=== PATIENT | male | born 1980 | race Caucasian/White ===

== ENCOUNTER → 2022-11-13 | Outpatient (CLI) | payer OTHER, SELFPAY ==
[2022-11-13 16:53] LABS: Absolute Neutrophil Count 4.9 X10^3/uL (2.0-7.7); Basophil# 0.03 X10^3/uL; Basophil% 0.3 % (0-1); Eosinophil# 0.05 X10^3/uL; Eosinophils% 0.5 % (0-5); Hemoglobin 15.7 g/dL (13.0-16.5); Lymphocyte % 39.6 % (19-41); Mean Corp Hgb Conc 33.4 g/dL (32-36); Mean Corpuscular Hgb 29.7 pg (27.0-32.0); Mean Platelet Vol. 10.4 fl (6.2-12.0); Monocyte% 6.4 % (0-10); NRBC Flagged by Analyzer 0 % (0-5); Neutrophil # 4.94 X10^3/uL (2.7-7.7); Platelet Count 279 K/mm3 (150-450); RBC Distribution Width CV 11.8 % (11.6-14.6); RBC Distribution Width SD 38.3 fl (35.1-43.9); Red Blood Count 5.28 M/mm3 (4.6-6.2); White Blood Count 9.3 K/mm3 (4.4-11.0)
[2022-11-13 17:19] LABS: ALB/GLOB Ratio 0.9 RATIO (0.9-2.4); AST(SGOT) 57 U/L (15-37); Alanine Aminotransfer ALT/SGPT 107 U/L (16-61); Alkaline Phosphatase 96 U/L (45-117); Anion Gap 8 (5-15); BUN 15 mg/dL (7-18); BUN/Creat Ratio 14.7 RATIO (10-20); Calcium,Total 9.7 mg/dL (8.5-10.1); Chloride 100 mmol/L (98-107); Cholesterol 229 mg/dL (200); Creatinine, Serum 1.02 mg/dL (0.70-1.30); EST Glomerular Filtration Rate 84 mL/min (>60); Est Glom Filt Rate - Afr Amer 102 mL/min (>60); Globulin 4.3 g/dL (2.2-4.2); Glucose 146 mg/dL (74-106); High Density Lipoprotein 33 mg/dL; Potassium 3.6 mmol/L (3.5-5.1); Protein, Total 8.3 g/dL (6.4-8.2); Sodium Level 135 mmol/L (136-145); Thyroid Stim Hormone (TSH) 1.28 uIU/mL (0.358-3.74); Triglycerides 193 mg/dL; Very Low Density Lipoprotein 39 mg/dL (5-40)
[2022-11-16 15:09] LABS: Hemoglobin A1c 10.1 % (3.8-5.6)
== END | disposition home or self-care (01) ==
LOC: BIMLAB 14:49
PROVIDERS: PCP Internal Medicine; Referring Provider Internal Medicine; Visit Provider Internal Medicine
DX: K21.9 Gastro-esophageal reflux disease without esophagitis (principal); G43.909 Migraine, unspecified, not intractable, without status migrainosus; R73.09 Other abnormal glucose; Z13.6 Encounter for screening for cardiovascular disorders
CPT/HCPCS: 36415; 80053; 80061; 83036; 84443; 85025

== ENCOUNTER 2022-12-18 06:24 | Day surgery (SDC) | payer OTHER, SELFPAY ==
[2022-12-18 06:55] VITALS: BP 140/94; PULSE 67; RESP 16; TEMP 36.1; O2SAT 94; BMI 30.2
[2022-12-18] MEDS: Lactated Ringers 1,000 ML 15 ML IV (06:55)
--- NOTE | 2022-12-18 07:50 | PCM.HP.BLA ---
History and Physical Date of Admission: 12/18/22 Intake Vital Signs ? 11/13/2313:15 Height 6 ft Weight: 223 lb BMI 30.2 BP 146/89 H Blood Pressure Location Rt brachial Position Sitting Respiration 16 Pulse 91 Pulse Source Monitor Temp 97.3 F L Temp Source Temporal Pulse Oximetry (%) 97 Oxygen Delivery Method room air Intake Visit Reasons:?Upper/Lower Scope Chief Complaint: Upper/Lower Scope Seamstress Fitter Required: No Is patient in pain?: No Allergies No Known Allergies Allergy (Unverified 11/13/22 14:16) Medications rizatriptan 10 mg disintegrating tablet (Maxalt-SALES SERVICE REPRESENTATIVE) See Rx Instructions PO .COMPLEX #10 tabs 10/31/22 [Rx Confirmed 11/13/22] omeprazole 40 mg capsule,delayed release 40 mg PO DAILY 11/13/22 [History Confirmed 11/13/22] PFSH Medical History? GERD (gastroesophageal reflux disease) Headache, migraine History of pneumonia History of shingles Surgical History? No pertinent past surgical history Family History? Mother Arthritis CVA (cerebral vascular accident) High cholesterol UlcerFather Arthritis Cancer ?? ? skin Diabetes High cholesterol Hypertension Melanoma SeizuresGrandmother Arthritis Cancer ?? ? cervicalGrandfather ArthritisSister Breast cancerGrandmother Alzheimer disease UlcerGrandfather Heart failure Myocardial infarctionOther Mental disorder Social History? household members:? spouse current occupational status:? 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 Never smoker Electronic Cigarette Use:? not used alcohol intake:? never substance use type:? does not use what type of physical activity do you participate in:? none do you feel safe at home:? Yes HPI HPI HPI: Patient is a 42-year-old male here with black stools.? He reports that in 2019 he had an episode where he was vomiting a lot of acidic material that was green and since then he has had episodic black stools.? He was started on a PPI about 2 weeks ago and has not had any black stools since then.? He denies abdominal pain or gross blood in the stool.? He has not had a colonoscopy. ROS General General: Yes weight change; No appetite, fatigue, colon cancer, breast cancer or weakness HEENT HEENT: No difficulty swallowing, eye injury, eye surgery, swollen glands or hoarseness Endo Endocrine: No thyroid disease, diabetes mellitus, thyroid cancer, Hair loss, heat intolerance or cold intolerance Skin Skin: No rash or changing moles Musc Musculoskeletal: No back problems, arthritis, rheumatoid arthritis, gout or joint pain Cardio Cardiovascular: No murmur, pacemaker, heart disease, atrial fibrillation, high blood pressure, heart attack, heart stent, palpitations, shortness of breat with exertion or chest pain Psych Psychiatric: No depression, anxiety or hearing voices Resp Respiratory: No shortness of breath, No sleep apnea, No cough, No COPD, No asthma, No emphysema and No wheezing Gastro Gastrointestinal: No abdominal pain, No nausea or vomiting, No diarrhea, No constipation, Yes blood in stool, Yes acid reflux, No hemorrhoids, No ulcers, No gallbladder problem and Yes black,tarry stools Jaxon Hematologic: No blood thinners, No blood disorders, No bleeding, No anemia and No blood clots Neuro Neurologic: No system reviewed and no additional complaints, except as documented, No as per HPI, No abnormal gait, No abnormal hearing, No abnormal movements, No abnormal speech, No behavioral changes, No burning sensations, No confusion, No convulsions, No disequilibrium, No dizziness, No localized weakness, No frequent falls, No headache(s), No lack of coordination, No loss of vision, No memory loss, No numbness, No other visual disturbances, No radicular pain, No restless legs, No sensory deficit, No syncope, No tingling, No tremor(s), No weakness and No other Exam Const General: cooperative Orientation: alert and oriented x3 HENMT Head: normal to inspection Neck Neck: normal visual inspection and full ROM Chest Chest palpation & inspection: normal inspection of the chest Resp Effort & Inspection: normal respiratory effort Auscultation: clear to auscultation bilaterally Cardio Rate: regular rate Rhythm: regular rhythm GI Inspection: non-distended Palpation: soft and nontender Skin General: no rashes or lesions noted Neuro General: patient alert and patient oriented x3 Extrem General: full ROM Psych Appearance: grossly normal Mental Status: mental status grossly normal Assessment and Plan Assessment and Plan (1) Black stools: ?Status:?Acute (2) GERD (gastroesophageal reflux disease): ?Status:?Acute ?Qualifiers: ?Esophagitis presence:?without esophagitis? Qualified Code(s):?K21.9 - Gastro-esophageal reflux disease without esophagitis ? ? ? Orders: Orders Colonoscopy Today K21.9 - Gastro-esophageal reflux disease without esophagitis, K92.1 - Melena Dr. Jt Nielson MD EGD Today K21.9 - Gastro-esophageal reflux disease without esophagitis, K92.1 - Melena Dr. Jt Nielson MD ? ? ? Medications: Changed From omeprazole 20 mg? PO DAILY ? ? To omeprazole 40 mg? PO DAILY ? Dr. Aye Christianson MD Plan Patient has been having black stools and is concerned for GI bleeding.? He was sent here for EGD and colonoscopy.? Patient has never had a colonoscopy before. I explained endoscopy in detail to the patient.? I explained the risks including but not limited to stroke or heart attack with anesthesia, perforation of the GI tract, bleeding, infection.? I explained that any of these could necessitate further emergency surgery.? The patient understands and all questions were answered sufficiently.? The patient wishes to proceed with procedure. Jt Nielson MD Pager: [facility] [address] [place] [address], [address] [place] [address] Office: I have examined the patient and the H&P has been reviewed. There are no clinical changes since date of exam.
[2022-12-18 07:55] VITALS: BP 102/63; BP 140/94; BP 96/58; PULSE 61; PULSE 68; RESP 18; TEMP 36; O2SAT 93
--- NOTE | 2022-12-18 07:55 | OP.EGD_ITS ---
Patient Name: Wilfrid Quevedo Procedure Date: 12/18/2022 7:18 AM Date of : 1980 Age: 42 Procedure: Upper GI endoscopy Indications: Melena Providers: Jt Nielson MD Medicines: Monitored Anesthesia Care Patient Profile: This is a 42 year old male. Refer to note in patient chart for documentation of history and physical. Complications: No immediate complications. Procedure: Pre-Anesthesia Assessment: - Prior to the procedure, a History and Physical was performed, and patient medications and allergies were reviewed. The patient's tolerance of previous anesthesia was also reviewed. The risks and benefits of the procedure and the sedation options and risks were discussed with the patient. All questions were answered, and informed consent was obtained. Prior Anticoagulants: The patient has taken no previous anticoagulant or antiplatelet agents. After reviewing the risks and benefits, the patient was deemed in satisfactory condition to undergo the procedure. After obtaining informed consent, the endoscope was passed under direct vision. Throughout the procedure, the patient's blood pressure, pulse, and oxygen saturations were monitored continuously. The colonoscope was introduced through the mouth, and advanced to the second part of duodenum. The upper GI endoscopy was accomplished without difficulty. The patient tolerated the procedure well. Scope In: 7:34:17 AM Scope Out: 7:36:31 AM Total Procedure Duration Time 0 hours 2 minutes 14 seconds Findings: The esophagus was normal. The stomach was normal. The examined duodenum was normal. Impression: - Normal esophagus. - Normal stomach. - Normal examined duodenum. - No specimens collected. Recommendation: - Discharge patient to home. - Resume previous diet. - Continue present medications. Procedure Code(s): --- Professional --- 68289, Esophagogastroduodenoscopy, flexible, transoral; diagnostic, including collection of specimen(s) by brushing or washing, when performed (separate procedure) Diagnosis Code(s): --- Professional --- K92.1, Melena (includes Hematochezia) CPT copyright 2017 [employer]. All rights reserved. The codes documented in this report are preliminary and upon pulverizer review may be revised to meet current compliance requirements. Jt Nielson MD 12/18/2022 7:55:31 AM This report has been signed electronically. Number of Addenda: 0 Note Initiated On: 12/18/2022 7:18 AM
--- NOTE | 2022-12-18 07:56 | OP.CCLET_ITS ---
12/18/2022 Aye Christianson Md Re : Upper GI endoscopy procedure for Wilfrid Quevedo Dear Sammy This procedure was performed on Sunday, December 18, 2022. My impressions and recommendations are as follows: Impressions : - Normal esophagus. - Normal stomach. - Normal examined duodenum. - No specimens collected. Recommendations : - Discharge patient to home. - Resume previous diet. - Continue present medications. My findings are described in the full procedure note, which is enclosed. If I can be of further assistance, please feel free to contact me at Doctor phone number(s): , Work: . Sincerely, Jt Nielson MD 12/18/2022 7:55:31 AM This report has been signed electronically.
--- NOTE | 2022-12-18 07:57 | OP.CCLET_ITS ---
12/18/2022 Aye Christianson Md Re : Colonoscopy procedure for Wilfrid Quevedo Dear Sammy This procedure was performed on Sunday, December 18, 2022. My impressions and recommendations are as follows: Impressions : - The entire examined colon is normal on direct and retroflexion views. - No specimens collected. Recommendations : - Discharge patient to home. - Resume previous diet. - Continue present medications. - Repeat colonoscopy in 10 years for screening purposes. My findings are described in the full procedure note, which is enclosed. If I can be of further assistance, please feel free to contact me at Doctor phone number(s): , Work: . Sincerely, Jt Nieslon MD 12/18/2022 7:56:43 AM This report has been signed electronically.
--- NOTE | 2022-12-18 07:57 | OP.COLON_ITS ---
Patient Name: Wilfrid Quevedo Procedure Date: 12/18/2022 7:37 AM Date of : 1980 Age: 42 Procedure: Colonoscopy Indications: Melena Providers: Jt Nielson MD Medicines: Monitored Anesthesia Care Patient Profile: This is a 42 year old male. Refer to note in patient chart for documentation of history and physical. Last Colonoscopy: none. The patient's first colonoscopy is today. Complications: No immediate complications. Procedure: Pre-Anesthesia Assessment: - Prior to the procedure, a History and Physical was performed, and patient medications and allergies were reviewed. The patient's tolerance of previous anesthesia was also reviewed. The risks and benefits of the procedure and the sedation options and risks were discussed with the patient. All questions were answered, and informed consent was obtained. Prior Anticoagulants: The patient has taken no previous anticoagulant or antiplatelet agents. After reviewing the risks and benefits, the patient was deemed in satisfactory condition to undergo the procedure. - Prior to the procedure, a History and Physical was performed, and patient medications and allergies were reviewed. The patient's tolerance of previous anesthesia was also reviewed. The risks and benefits of the procedure and the sedation options and risks were discussed with the patient. All questions were answered, and informed consent was obtained. Prior Anticoagulants: The patient has taken no previous anticoagulant or antiplatelet agents. After reviewing the risks and benefits, the patient was deemed in satisfactory condition to undergo the procedure. After I obtained informed consent, the scope was passed under direct vision. Throughout the procedure, the patient's blood pressure, pulse, and oxygen saturations were monitored continuously. The colonoscope was introduced through the anus and advanced to the cecum, identified by appendiceal orifice and ileocecal valve. The colonoscopy was performed without difficulty. The patient tolerated the procedure well. The quality of the bowel preparation was good. Scope In: 7:37:28 AM Scope Withdrawal Time 0 hours 6 minutes 1 second Scope Out: 7:48:08 AM Total Procedure Duration Time 0 hours 10 minutes 40 seconds Findings: The entire examined colon appeared normal on direct and retroflexion views. Impression: - The entire examined colon is normal on direct and retroflexion views. - No specimens collected. Recommendation: - Discharge patient to home. - Resume previous diet. - Continue present medications. - Repeat colonoscopy in 10 years for screening purposes. Procedure Code(s): --- Professional --- 84068, Colonoscopy, flexible; diagnostic, including collection of specimen(s) by brushing or washing, when performed (separate procedure) Diagnosis Code(s): --- Professional --- K92.1, Melena (includes Hematochezia) CPT copyright 2017 [employer]. All rights reserved. The codes documented in this report are preliminary and upon slicing machine tender review may be revised to meet current compliance requirements. Jt Nielson MD 12/18/2022 7:56:43 AM This report has been signed electronically. Number of Addenda: 0 Note Initiated On: 12/18/2022 7:37 AM
[2022-12-18 08:00] VITALS: BP 103/65; BP 140/94; PULSE 92; RESP 18; O2SAT 93
[2022-12-18 08:05] VITALS: BP 111/77; BP 140/94; PULSE 64; RESP 18; O2SAT 93
[2022-12-18 08:05] LABS: Bedside Glucose 137 mg/dL (74-106)
[2022-12-18 08:08] VITALS: BP 112/84; BP 140/94; PULSE 62; RESP 14; TEMP 36.3; O2SAT 97
[2022-12-18 08:22] VITALS: BP 140/94
== END 2022-12-18 08:20 | disposition home or self-care (01) ==
LOC: EN 06:26 → AC 06:27
PROVIDERS: PCP Internal Medicine; Referring Provider Internal Medicine; Visit Provider Surgery
PROC: 0DJD8ZZ Inspection of Lower Intestinal Tract, Via Natural or Artificial Opening Endoscopic (ICD-10-PCS; CPT 45378; principal; 2022-12-18 07:25)
DX: K92.1 Melena (principal); E11.9 Type 2 diabetes mellitus without complications; K21.9 Gastro-esophageal reflux disease without esophagitis
CPT/HCPCS: 43235; 45378; 82962; J7120; J2405

== ENCOUNTER → 2023-04-19 | Outpatient (CLI) | payer OTHER, SELFPAY ==
[2023-04-19 12:36] LABS: ALB/GLOB Ratio 0.9 RATIO (0.9-2.4); AST(SGOT) 62 U/L (15-37); Alanine Aminotransfer ALT/SGPT 109 U/L (16-61); Alkaline Phosphatase 89 U/L (45-117); Anion Gap 6 (5-15); BUN 12 mg/dL (7-18); BUN/Creat Ratio 11.3 RATIO (10-20); Calcium,Total 9.4 mg/dL (8.5-10.1); Chloride 106 mmol/L (98-107); Cholesterol 231 mg/dL (200); Creatinine, Serum 1.06 mg/dL (0.70-1.30); EST Glomerular Filtration Rate 80 mL/min (>60); Est Glom Filt Rate - Afr Amer 97 mL/min (>60); Globulin 4.5 g/dL (2.2-4.2); Glucose 114 mg/dL (74-106); High Density Lipoprotein 32 mg/dL; Potassium 3.9 mmol/L (3.5-5.1); Protein, Total 8.5 g/dL (6.4-8.2); Sodium Level 137 mmol/L (136-145); Triglycerides 283 mg/dL; Very Low Density Lipoprotein 57 mg/dL (5-40)
[2023-04-19 12:43] LABS: Microalbumin:Creatinine Ratio 55.6 mg/g CRE (<30 mg/g CRE)
== END | disposition home or self-care (01) ==
LOC: BIMLAB 08:18
PROVIDERS: PCP Internal Medicine; Referring Provider Internal Medicine; Visit Provider Internal Medicine
DX: E11.65 Type 2 diabetes mellitus with hyperglycemia (principal)
CPT/HCPCS: 36415; 80053; 80061; 82043; 82570

== ENCOUNTER → 2023-12-30 | Outpatient (CLI) | payer OTHER, SELFPAY ==
[2023-12-30 16:51] LABS: Absolute Neutrophil Count 4.3 X10^3/uL (2.0-7.7); Basophil# 0.03 X10^3/uL; Basophil% 0.3 % (0-1); Eosinophil# 0.13 X10^3/uL; Eosinophils% 1.4 % (0-5); Hematocrit 43.5 % (40-54); Hemoglobin 14.8 g/dL (13.0-16.5); Lymphocyte % 42.8 % (19-41); Mean Corpuscular Hgb 30.1 pg (27.0-32.0); Mean Corpuscular Volume 88.6 fL (80-94); Mean Platelet Vol. 10.1 fl (6.2-12.0); Monocyte# 0.73 X10^3/uL; NRBC Flagged by Analyzer 0 % (0-5); Neutrophil % 47.2 % (47-70); Platelet Count 257 K/mm3 (150-450); RBC Distribution Width CV 11.8 % (11.6-14.6); RBC Distribution Width SD 37.8 fl (35.1-43.9); Red Blood Count 4.91 M/mm3 (4.6-6.2); White Blood Count 9.1 K/mm3 (4.4-11.0)
[2023-12-30 17:11] LABS: AST(SGOT) 45 U/L (15-37); Alanine Aminotransfer ALT/SGPT 90 U/L (16-61); Albumin, Serum 4.1 g/dL (3.2-5.0); Alkaline Phosphatase 76 U/L (45-117); Anion Gap 5 (5-15); BUN 9 mg/dL (7-18); BUN/Creat Ratio 8.3 RATIO (10-20); Calcium,Total 9.8 mg/dL (8.5-10.1); Chloride 104 mmol/L (98-107); Cholesterol 158 mg/dL (200); Creatinine, Serum 1.08 mg/dL (0.70-1.30); EST Glomerular Filtration Rate 78 mL/min (>60); Est Glom Filt Rate - Afr Amer 95 mL/min (>60); Glucose 93 mg/dL (74-106); High Density Lipoprotein 32 mg/dL; Potassium 3.8 mmol/L (3.5-5.1); Protein, Total 8.1 g/dL (6.4-8.2); Sodium Level 138 mmol/L (136-145); Triglycerides 188 mg/dL; Very Low Density Lipoprotein 38 mg/dL (5-40)
== END | disposition home or self-care (01) ==
LOC: BIMLAB 14:44
PROVIDERS: PCP Internal Medicine; Referring Provider Internal Medicine; Visit Provider Internal Medicine
DX: E11.9 Type 2 diabetes mellitus without complications (principal)
CPT/HCPCS: 36415; 80053; 80061; 83036; 85025

== ENCOUNTER → 2024-03-20 | Outpatient (CLI) | payer OTHER, SELFPAY ==
--- NOTE | 2024-03-20 13:00 | VAS_PTH ---
PATIENT: MAYRA MCCALLUM [facility] U#:[id number] AGE/SX: 44/M ROOM: RE03/20/[address]: Dr. Jt Nielson MD : 1980 BED: DIS: 03/20/2024 SPEC #: [id number] RECD: 03/20/24 14:53 STATUS: MEDINA REMarco A #: [id number] EMILY: 03/20/24 13:[address]: Jt Nielson DEPT: SURGICAL PATHOLOGY RECD BY: George Hunter ENTERED: 03/23/24 07:41 SP TYPE: VAS OTHR DR: Dr. Aye Christianson MD Tissues: A - Vas deferens, NOS B - Vas deferens, NOS Procedures: Surgery Specimen Level II HEADER OPERATION: Bilateral partial vasectomy PRE-OP DIAGNOSIS: Sterilization TISSUE SUBMITTED: A- Right vas deferens, B- Left vas deferens MICROSCOPIC DIAGNOSIS A. Right vas deferens, segmental vasectomy: Complete cross-section of vas deferens with no pathologic change. B. Left vas deferens, segmental vasectomy: Complete cross-section of vas deferens with no pathologic change. AM: 03/24/2024 MICROSCOPIC DESCRIPTION Slides are reviewed. GROSS DESCRIPTION A - Received is one container designated right vas deferens. The specimen consists of a tubular segment of temple soft tissue measuring 0.6 cm in length and 0.2 cm in diameter. The specimen is sectioned and submitted entirely in one cassette. B - Received is one container designated left vas deferens. The specimen consists of a tubular segment of temple soft tissue measuring 1.2 cm in length and 0.2 cm in diameter. The specimen is sectioned and submitted entirely in one cassette. / SJ: 03/23/2024 TC:4 CPT: 54100 x2
== END | disposition home or self-care (01) ==
LOC: LABSPEC 14:53
PROVIDERS: PCP Internal Medicine; Referring Provider Surgery; Visit Provider Surgery
DX: Z30.2 Encounter for sterilization (principal); Z98.52 Vasectomy status
CPT/HCPCS: 88302

== ENCOUNTER → 2024-07-01 | Outpatient (CLI) | payer OTHER, SELFPAY ==
[2024-07-01 12:42] LABS: Hematocrit 45.3 % (40-54); Hemoglobin 14.7 g/dL (13.0-16.5); Mean Corp Hgb Conc 32.5 g/dL (32-36); Mean Corpuscular Hgb 29.6 pg (27.0-32.0); Mean Corpuscular Volume 91.1 fL (80-94); Mean Platelet Vol. 10.3 fl (6.2-12.0); Platelet Count 264 K/mm3 (150-450); RBC Distribution Width CV 11.9 % (11.6-14.6); RBC Distribution Width SD 39.6 fl (35.1-43.9); Red Blood Count 4.97 M/mm3 (4.6-6.2); White Blood Count 7.7 K/mm3 (4.4-11.0)
[2024-07-01 13:40] LABS: AST(SGOT) 50 U/L (15-37); Alanine Aminotransfer ALT/SGPT 99 U/L (16-61); Albumin, Serum 4.1 g/dL (3.2-5.0); Alkaline Phosphatase 71 U/L (45-117); Anion Gap 7 (5-15); BUN 11 mg/dL (7-18); BUN/Creat Ratio 9.1 RATIO (10-20); Calcium,Total 9.8 mg/dL (8.5-10.1); Chloride 103 mmol/L (98-107); Cholesterol 213 mg/dL (200); Creatinine, Serum 1.21 mg/dL (0.70-1.30); EST Glomerular Filtration Rate 69 mL/min (>60); Est Glom Filt Rate - Afr Amer 83 mL/min (>60); Glucose 142 mg/dL (74-106); High Density Lipoprotein 37 mg/dL; Potassium 4.3 mmol/L (3.5-5.1); Protein, Total 8.1 g/dL (6.4-8.2); Sodium Level 138 mmol/L (136-145); Triglycerides 175 mg/dL; Very Low Density Lipoprotein 35 mg/dL (5-40)
== END | disposition home or self-care (01) ==
LOC: BIMLAB 08:19
PROVIDERS: PCP Internal Medicine; Referring Provider Physician Assistant; Visit Provider Physician Assistant
DX: E11.65 Type 2 diabetes mellitus with hyperglycemia (principal)
CPT/HCPCS: 36415; 80053; 80061; 85027

== ENCOUNTER → 2024-12-31 | Outpatient (CLI) | payer OTHER, SELFPAY ==
[2024-12-31 12:43] LABS: Absolute Lymphocyte Count 3.03 X10^3/uL (0.83-4.51); Absolute Neutrophil Count 4.1 X10^3/uL (2.0-7.7); Basophil# 0.03 X10^3/uL; Basophil% 0.4 % (0-1); Eosinophils% 1.3 % (0-5); Hemoglobin 14.6 g/dL (13.0-16.5); Lymphocyte # 3.03 X10^3/ul (0.83-4.51); Lymphocyte % 38.1 % (19-41); Mean Corp Hgb Conc 33.2 g/dL (32-36); Mean Corpuscular Volume 90.3 fL (80-94); Mean Platelet Vol. 10.5 fl (6.2-12.0); Monocyte# 0.71 X10^3/uL; Monocyte% 8.9 % (0-10); NRBC Flagged by Analyzer 0 % (0-5); Neutrophil # 4.06 X10^3/uL (2.7-7.7); Platelet Count 246 K/mm3 (150-450); RBC Distribution Width CV 11.6 % (11.6-14.6); Red Blood Count 4.87 M/mm3 (4.6-6.2)
[2024-12-31 13:19] LABS: Microalbumin,Random Urine 36.3 mg/L (NO RANGE EST.); Microalbumin:Creatinine Ratio 90.5 mg/g CRE
[2024-12-31 13:28] LABS: ALB/GLOB Ratio 1.5 RATIO (0.9-2.4); AST(SGOT) 37 U/L (<=37); Alanine Aminotransfer ALT/SGPT 55 U/L (<=46); Albumin, Serum 4.5 g/dL (3.5-5.0); Alkaline Phosphatase 79 U/L (40-129); Anion Gap 13 (5-15); BUN 15 mg/dL (4-19); BUN/Creat Ratio 14.4 RATIO (10-20); Carbon Dioxide 23.7 mmol/L (21.0-32.0); Chloride 101 mmol/L (98-108); Cholesterol 136 mg/dL (<=200); Creatinine, Serum 1.07 mg/dL (0.70-1.20); EST Glomerular Filtration Rate 87 (>60); Globulin 3.1 g/dL (2.2-4.2); Glucose 123 mg/dL (70-99); High Density Lipoprotein 33 mg/dL; Low Density Lipoprotein Calc. 77 mg/dL; Potassium 4.2 mmol/L (3.3-5.1); Protein, Total 7.6 g/dL (5.9-8.4); Sodium Level 137 mmol/L (133-145); Total Bilirubin 0.77 mg/dL (0.00-1.30); Triglycerides 134 mg/dL; Very Low Density Lipoprotein 27 mg/dL (5-40); cholesterol:hdl ratio screen 4.18
[2024-12-31 13:30] LABS: Vitamin D,25 Hydroxy 9.8 ng/mL (30-100)
== END | disposition home or self-care (01) ==
LOC: BIMLAB 08:13
PROVIDERS: PCP Internal Medicine; Referring Provider Internal Medicine; Visit Provider Internal Medicine
DX: F41.9 Anxiety disorder, unspecified (principal); E11.9 Type 2 diabetes mellitus without complications; F32.A Depression, unspecified; G43.009 Migraine without aura, not intractable, without status migrainosus; K21.9 Gastro-esophageal reflux disease without esophagitis
CPT/HCPCS: 36415; 80053; 80061; 82043; 82306; 82570; 83036; 84443; 85025

== ENCOUNTER 2025-05-19 03:51 | Emergency (ER) | payer OTHER, SELFPAY ==
[2025-05-19 03:53] VITALS: BP 167/94; PULSE 80; RESP 16; TEMP 36.6; O2SAT 95; BMI 30.4
--- NOTE | 2025-05-19 04:18 | EDS_ITS ---
HPI History of Present Illness Chief Complaint: Headache Informant: patient Onset/Context/Timing Onset: Days (2) Context: Gradual Narrative Narrative: 45-year-old male presenting with what feels like an started out like a migraine, but the severity has gotten worse than usual. Duration is not uncommon so far, 2 days. He woke up with it around 4:30 AM 1 day, which is not unusual for him as well. He has some photophobia, occasional nausea no vomiting. States he also has vertigo with it which is not uncommon, but what is unusual is he has also developed pain in his right ear along with muffled hearing. No acute sudden hearing loss. No discharge from the ear. No fevers or chills. No neck stiffness, no focal neurologic symptoms. History of migraines similar to this for 20 years but do not usually get this severe. Prior similar symptoms: Yes [facility] Medical History Family history of prostate cancer Encounter to discuss colonoscopy results Wears glasses Diabetes Blackout Migraine headache Dietary restriction Non-smoker GERD (gastroesophageal reflux disease) History of shingles Headache, migraine Home Medications ?Medication ?Instructions ?Recorded ?Last Taken ?Type blood sugar diagnostic (Advanced #100 ea 12/12/22 Unkn own Rx Glucose Meter Test Strips) blood-glucose meter (Advanced #1 ea 12/12/22 Unknown R x Glucose Meter) lancets (Accu-Chek Softclix #100 ea 12/12/22 Unknown R x Lancets) rizatriptan 10 mg disintegrating 10 mg PO PRN PRN MIGR AINES #10 tabs 07/01/24 Unknown Rx tablet (Maxalt-PASSENGER TIRE INSPECTOR) atorvastatin 10 mg tablet (Lipitor) 10 mg PO QHS #90 t abs 12/31/24 Unknown Rx lisinopril 2.5 mg tablet 2.5 mg PO DAILY #90 tabs 07/17 Unknown Rx metformin 500 mg tablet 500 mg PO BID #180 tabs 12/22 Unknown Rx pantoprazole 40 mg tablet,delayed 40 mg PO DAILY #90 t abs 12/31/24 Unknown Rx release (Protonix) cholecalciferol (vitamin D3) 1,250 1,250 mcg PO QWEEK #12 caps 02/18/25 Unknown Rx mcg (50,000 unit) capsule sertraline 25 mg tablet (Zoloft) 25 mg PO QDAY #30 tab s 04/05/25 Unknown Rx amoxicillin 875 mg-potassium 875 mg PO Q12H #20 TABLET S 05/19/25 Unknown Rx clavulanate 125 mg tablet Allergy/AdvReac Type Severity Reaction Status Date / Time No Known Allergies Allergy Verified 05/19/25 03:52 Family History Mother Arthritis CVA (cerebral vascular accident) High cholesterol Ulcer Father Arthritis Cancer skin Diabetes High cholesterol Hypertension Melanoma Seizures Grandmother Arthritis Cancer cervical Grandfather Arthritis Sister Breast cancer Grandmother Alzheimer disease Ulcer Grandfather Heart failure Myocardial infarction Other Mental disorder Surgical History H/O endoscopy H/O: vasectomy No pertinent past surgical history Social History adopted: No household members: none number of children: 2 current occupational status: employed current occupation: middle school humanities teacher pets and animals: Yes (1) pets and animals: cat(s) sexually active: No Smoking Status: Never smoker Electronic Cigarette Use: not used alcohol intake: current alcohol intake frequency: holidays/special occasions only substance use type: does not use caffeine: Yes (4) Type: carbonated beverages frequency: 3-4 times per week do you feel safe at home: Yes ROS ROS ED Constitutional Constitutional ED: Denies chills or fever(s) Eyes Eyes: Reports blurry vision; Denies diplopia ENT ENT ED: Reports ear pain right, headache(s) and vertigo; Denies hearing loss, nasal congestion, rhinorrhea, sinus pain, sinus pressure or sore throat Cardiovascular Cardiovascular: Denies chest pain or palpitations Respiratory/Chest Respiratory/Chest: Denies cough or dyspnea Gastrointestinal Gastrointestinal: Reports nausea and vomiting; Denies abdominal pain or diarrhea Genitourinary Genitourinary ED: Denies dysuria or urinary frequency Musculoskeletal Musculoskeletal: Denies back pain or myalgias Integumentary Denies abscess or rash Neurologic Neurologic: Reports headache(s); Denies paresthesias or weakness EXAM Physical Exam Const Vital Signs: 05/19/25 03:53 05/19/25 05:00 Temperature 98 F Temperature Source Oral Pulse Rate 80 69 Respiratory Rate 16 18 Blood Pressure 167/94 H 138/89 H Blood Pressure Mean 118 105 Pulse Ox 95 98 Oxygen Delivery Method Room Air Room Air HEENT Reports normocephalic and moist mucous membranes HEENT Narrative: Left TM and EAC are normal. The right EAC is unremarkable and he has no discomfort with manipulation of the pinna or the tragus, but the TM although not erythematous, appears to be bulging, I question a purulent effusion. No periauricular lymphadenopathy or mastoid process tenderness, erythema, swelling. atraumatic Eyes PERRL, EOMs intact bilaterally and conjunctivae normal Eyes Narrative: photophobia Neck no lymphadenopathy, supple and no meningeal signs Resp normal respiratory effort and clear to auscultation bilaterally GI non-tender and non-distended Palpation: soft Extremity normal to inspection and full ROM Neuro oriented x3 and CN's II-XII intact bilaterally Sensorium / Orientation: awake and alert Speech: speech normal Gait (Neuro): normal gait Motor Exam: strength 5/5 throughout Psych mental status grossly normal Skin Lesions: no lesions Rashes: no rashes MDM MDM MDM Narrative Medical decision making narrative: Treated patient with IV metoclopramide and small dose of Toradol, on reexamination he is feeling much better no EPS and headache is almost gone significantly improved. Blood pressure 138/89 without treating that, which is reassuring I do not think he needs advanced imaging of the head although was considered. I do not think he is likely to have a subarachnoid hemorrhage here, this was not an abrupt thunderclap onset headache. This may be more severe related to the earache. Because it does appear to be an effusion on that side and he has no allergy type symptoms to suggest a reason for it, I am going to treat him with antibiotics for possible acute otitis media. He is asking for a work note for the last 2 days and today, which I am happy to give. He supposed to drive to [place] for work. We have not given Benadryl so is not too sleepy and he feels comfortable enough to drive home safely. Discharge Plan Triage Chief Complaint: Headache ED Provider: Bala Langston Dx/Rx/DC Orders Clinical Impression: Headache, migraine, Acute right otitis media Instructions: ED, Migraine (Classical), ED Otitis Media Adult Prescriptions: New amoxicillin-pot clavulanate 875-125 mg tablet 875 mg PO Q12H Qty: 20 0RF No Action rizatriptan [Maxalt-PASSENGER TIRE INSPECTOR] 10 mg tablet,disintegrating 10 mg PO PRN PRN (Reason: MIGRAINES) Qty: 10 1RF atorvastatin [Lipitor] 10 mg tablet 10 mg PO QHS Qty: 90 1RF lisinopril 2.5 mg tablet 2.5 mg PO DAILY Qty: 90 1RF pantoprazole [Protonix] 40 mg tablet,delayed release (DR/EC) 40 mg PO DAILY Qty: 90 1RF metformin 500 mg tablet 500 mg PO BID Qty: 180 1RF (DME) blood-glucose meter [Advanced Glucose Meter] Misc See Rx Instructions .Route Qty: 1 0RF Rx Instructions: daily (DME) Advanced Gluc Meter Test Strip Strip See Rx Instructions .Route Qty: 100 0RF Rx Instructions: daily (DME) lancets [Accu-Chek Softclix Lancets] Misc See Rx Instructions .Route Qty: 100 0RF Rx Instructions: daily cholecalciferol (vitamin D3) 1,250 mcg (50,000 unit) capsule 1,250 mcg PO QWEEK Qty: 12 0RF sertraline [Zoloft] 25 mg tablet 25 mg PO QDAY Qty: 30 2RF Stand Alone Forms: ED Work / School Excuse Primary Care Provider: Aye Christianson Referrals: Aye Christianson MD [Primary Care Provider] - 3-5 Days if not improving Print Language: German Disposition Disposition: Home, Self Care
[2025-05-19] MEDS: Ketorolac 30 MG/ML Syringe 15 MG IV (04:29)
[2025-05-19 05:00] VITALS: BP 138/89; PULSE 69; RESP 18; O2SAT 98
--- OUTSIDE RECORDS SUMMARY | 2025-05-19 05:02 | XMS RPT_ITS | CCD ---
Author Organization [facility] CliniSyaz Care Team Providers Care Fire Crew Worker Name Role Phone Dr. Aye Christianson Attending Provider [phone] Dr. Jt Nielson Attending Provider Dr. Aye Christianson Primary Care Provider Dr. Aye Christianson Referring Provider [phone] Dr. Aye Christianson Attending Provider [phone] Dr. Jt Nielson Attending Provider Dr. Aye Christianson Primary Care Provider Dr. Aye Christianson Referring Provider [phone] Dr. Jt Nielson Other Provider [phone] Dr. Aye Christianson Primary Care Provider Dr. Aye Christianson Attending Provider [phone] Dr. Aye Christianson Referring Provider [phone] Dr. Chase Bae Attending Provider [phone] Dr. Aye Christianson Primary Care Provider Dr. Aye Christianson Attending Provider [phone] Dr. Aye Christianson Referring Provider [phone] Dr. Aye Christianson MD Primary Care Provider [phone] Dr. Aye Christianson MD Attending Provider Dr. Aye Christianson MD Referring Provider Vasiliy Peace Attending Unavailable Aye Christianson Primary Care Unavailable [place], Aye Referring Unavailable Sammy, Aye Primary Care Unavailable [place], Aye Attending Unavailable Sammy, Aye Referring Unavailable Sammy, Aye Referring Unavailable Sammy, Aye Primary Care Unavailable Sammy, Aye Attending Unavailable Jt Nielson Attending Unavailable Sammy, Aye Primary Care Unavailable Sammy, Aye Referring Unavailable Sammy, Aye Primary Care Unavailable Jt Nielson Attending Unavailable [place], Aye Referring Unavailable Sammy, Aye Primary Care Unavailable Casie Nielsonony Attending Unavailable [place], Aye Referring Unavailable Sammy, Aye Primary Care Unavailable [place], Aye Attending Unavailable [place], Aye Referring Unavailable Calabrlen Jt Referring Unavailable [place], Aye Primary Care Unavailable Jt Nielson Attending Unavailable Vasiliy Peace Attending Unavailable Vasiliy Peace Referring Unavailable Sammy, Aye Primary Care Unavailable Medications Current Medications Medication Drug Class(es) Dates Sig (Normalized) Sig (Original) Blood-Glucose Meter (Advanced Glucose Meter) mis (4 sources) Start: 12-12-2022 Blood-Glucose Meter (Advanced Glucose Meter) [facility] Active 0 .Route December 12, 2022 12:00am daily cholecalciferol 1.25 mg oral capsule (1 source) Vitamin D Start: 12-31-2024 take 1 capsule by mouth every week Cholecalciferol (Vitamin D3) 1,250 mcg (50,000 unit) capsule Active 1250 ug PO EVERY WEEK December 31, 2024 12:00am pantoprazole 40 mg delayed release oral tablet (6 sources) Proton Pump Inhibitor Start: 05-07-2023 End: 12-31-2024 take 1 tablet by mouth once daily Pantoprazole (Protonix) 40 mg tablet,delayed release (DR/EC) Active 40 mg PO DAILY December 31, 2024 7:42am rizatriptan 10 mg disintegrating oral tablet (10 sources) Serotonin-1b and Serotonin-1d Receptor Agonist Start: 10-31-2022 End: 07-01-2024 Rizatriptan (Maxalt-Melter Loader) 10 mg tablet,disintegratin g Active 10 mg PO NEEDED as needed for MIGRAINES July 01, 2024 7:36am sertraline 25 mg oral tablet (1 source) Serotonin Reuptake Inhibitor Start: 12-31-2024 take 1 tablet by mouth once daily Sertraline (Zoloft) 25 mg tablet Active 25 mg PO daily December 31, 2024 12:00am Completed/Discontinued Medications Medication Drug Class(es) Dates Sig (Normalized) Sig (Original) atorvastatin 10 mg oral tablet (9 sources) HMG-CoA Reductase Inhibitor Start: 04-22-2023 End: 12-31-2024 take 1 tablet by mouth at bedtime Atorvastatin (Lipitor) 10 mg tablet Discontinued 10 mg PO AT BEDTIME July 30, 2023 3:59pm December 30, 2023 2:41pm codeine phosphate 2 mg/ml / guaiFENesin 20 mg/ml oral solution (3 sources) Opioid Agonist Start: 02-05-2023 End: 05-07-2023 take 1 mL by mouth every six hours as needed for cough Codeine-Guaifenesin 10-100 mg/5 mL liquid Discontinued 5 mL PO EVERY 6 HOURS as needed for cough February 05, 2023 12:00am May 07, 2023 7:50am Start: 02-05-2023 End: 05-07-2023 take 1 mL by mouth every six hours Codeine-Guaifenesin Discontinued 5 ML PO EVERY 6 HOURS February 05, 2023 12:00am May 07, 2023 7:50am doxycycline hyclate 100 mg oral tablet (3 sources) Tetracycline-class Drug Start: 03-01-2023 End: 05-07-2023 take 1 tablet by mouth twice daily Doxycycline Hyclate 100 mg tablet Discontinued 100 mg PO TWICE A DAY March 01, 2023 12:00am May 07, 2023 7:39am ketoconazole 0.02 mg/mg topical gel (1 source) Azole Antifungal Start: 02-04-2024 End: 02-18-2024 Ketoconazole 2 % gel Discontinued 1 NMA TOPICAL DAILY 45 February 04, 2024 12:00am February 17, 2024 12:00am February 18, 2024 12:04am lisinopril 2.5 mg oral tablet (9 sources) Angiotensin Converting Enzyme Inhibitor Start: 04-22-2023 End: 12-31-2024 take 1 tablet by mouth once daily Lisinopril 2.5 mg tablet Discontinued 2.5 mg PO DAILY July 30, 2023 5:14pm December 30, 2023 2:41pm LORazepam 2 mg oral tablet (2 sources) Benzodiazepine Start: 03-20-2024 End: 03-20-2024 take 1 tablet by mouth once Lorazepam (Ativan) 2 mg tablet Discontinued 2 mg PO ONCE March 20, 2024 12:00am March 20, 2024 12:58pm Take 2 hours before procedure Start: 02-19-2024 End: 02-20-2024 take 1 tablet by mouth once Lorazepam (Ativan) 2 mg ta blet Discontinued 2 mg PO ONCE 1 February 19, 2024 12:00am February 19, 2024 12:00am February 20, 2024 12:05am Take two hours before procedure metFORMIN hydrochloride 500 mg oral tablet (18 sources) Biguanide Start: 04-22-2023 End: 12-31-2024 take 1 tablet by mouth twice daily Metformin 500 mg tablet Discontinued 500 mg PO TWICE A DAY 60 August 30, 2023 12:54pm December 30, 2023 2:41pm Start: 11-19-2022 End: 04-22-2023 take 1 tablet by mouth once daily, then take 1 tablet by mouth twice daily Metformin 500 mg tablet Discontinued 500 mg PO TWICE A DAY 60 December 12, 2022 9:47am April 22, 2023 1:37pm take 500mg daily for 1 week, then go up to 500mg twice daily. omeprazole 40 mg delayed release oral capsule (20 sources) Proton Pump Inhibitor Start: 11-13-2022 End: 11-13-2022 Omeprazole 40 mg capsule,delayed release(DR/EC) Discontinued 20 mg PO DAILY November 13, 2022 3:16pm November 13, 2022 3:18pm Start: 11-13-2022 End: 11-13-2022 take 20 mg by mouth once daily Omeprazole Discontinued 20 MG PO DAILY November 13, 2022 3:16pm November 13, 2022 3:18pm Start: 10-31-2022 End: 10-31-2022 take 1 capsule by mouth once daily Omeprazole 20 mg capsule,delayed release(DR/EC) Discontinued 20 mg PO DAILY October 31, 2022 1:00am October 31, 2022 4:42pm Start: 10-31-2022 End: 05-07-2023 take 1 capsule by mouth once daily Omeprazole 40 mg capsule,delayed release(DR/EC) Discontinued 40 mg PO DAILY May 07, 2023 7:45am May 07, 2023 7:59am oxyCODONE hydrochloride 5 mg oral tablet (1 source) Opioid Agonist Start: 03-20-2024 End: 03-23-2024 take 1 tablet by mouth every four hours as needed for pain Oxycodone 5 mg tablet Discontinued 5 mg PO Q4H as needed for pain 7 March 20, 2024 March 22, 2024 12:00am March 23, 2024 12:05am predniSONE 20 mg oral tablet (3 sources) Start: 02-05-2023 End: 05-07-2023 take 1 tablet by mouth once daily Prednisone 20 mg tablet Discontinued 20 mg PO DAILY February 05, 2023 12:00am May 07, 2023 7:50am Problems Active Problems Problem Classification Problem Date Documented Da te Episodic/Chronic Administrative/social admission (2 sources) Persons encountering health services in other specified circumstances; Translations: [Other reasons for seeking consultation] 10-31-2022 Episodic Anxiety disorders (2 sources) Moderate anxiety; Translations: [Anxiety disorder, unspecified] Onset: 5 12-31-2024 Chronic Diabetes mellitus with complications (7 sources) Type II diabetes mellitus uncontrolled; Translations: [Uncontrolled type 2 diabetes mellitus] Onset: 4 12-12-2022 Chronic Diabetes mellitus without complication (3 sources) Type 2 diabetes mellitus without complications; Translations: [Diabetes mellitus without mention of complication, type II or unspecified type, not stated as uncontrolled] Onset: 5 12-30-2023 Chronic Diabetes mellitus without complication (1 source) Diabetes mellitus without complication Esophageal disorders (13 sources) Gastroesophageal reflux disease; Translations: [Gastro-esophageal reflux disease without esophagitis] Onset: 5 10-31-2022 Chronic Gastrointestinal hemorrhage (7 sources) Black feces; Translations: [Melena] 11-13-2022 Episodic Headache; including migraine (11 sources) Migraine; Translations: [Migraine, unspecified, not intractable, without status migrainosus] Onset: 5 10-31-2022 Chronic Immunizations and screening for infectious disease (2 sources) Immunization due; Translations: [Encounter for immunization] Onset: 5 12-31-2024 Episodic Mood disorders (1 source) Mild depression; Translations: [Mild depression] 12-31-2024 Chronic Mood disorders (1 source) Mood disorders; Translations: [Depression, unspecified] Onset: Other eye disorders (2 sources) Xanthelasma of unspecified eye, unspecified eyelid; Translations: [Mixed hyperlipidemia] 10-31-2022 Episodic Other gastrointestinal disorders (3 sources) Other fecal abnormalities; Translations: [Nonspecific abnormal findings in stool contents] 10-31-2022 Episodic Other lower respiratory disease (1 source) Cough; Translations: [Cough] 12-30-2023 Episodic Other nutritional; endocrine; and metabolic disorders (2 sources) Polydipsia; Translations: [Polydipsia] 10-31-2022 Episodic Other nutritional; endocrine; and metabolic disorders (2 sources) Abnormal weight loss; Translations: [Loss of weight] 10-31-2022 Episodic Other screening for suspected conditions (not mental disorders or infectious disease) (4 sources) Encounter for screening for malignant neoplasm of colon; Translations: [Special screening for malignant neoplasms of colon] 10-31-2022 Episodic Other upper respiratory infections (1 source) Acute upper respiratory infection, unspecified; Translations: [Acute upper respiratory infections of unspecified site] 02-05-2023 Episodic Residual codes; unclassified (1 source) Family history of prostate cancer; Translations: [Family history of malignant neoplasm of prostate] 12-31-2024 Episodic Unclassified (1 source) E11.9 - Type 2 diabetes mellitus without complications Past or Other Problems Problem Classification Problem Date Documented Da te Episodic/Chronic Contraceptive and procreative management (2 sources) Patient encounter status; Translations: [Encounter for sterilization] Onset: 04-03-2024 12-31-2024 Episodic Residual codes; unclassified (1 source) Family history of malignant neoplasm of prostate; Translations: [Family history of malignant neoplasm of prostate] Onset: 07-01-2024 Episodic Results Test Name Value Interpretation Reference Range Facility Absolute neutrophil countOrd ered By: Aye Christianson on 04-10-2025 Neutrophils (Bld) [#/Vol] 4.1 10*3/uL 2.0-7.7 [facility] Albumin DL <= 20 mg/L (U) [M ass/Vol]Ordered By: Aye Christianson on 12-31-2024 Urine Random Microalbumin 36.3 mg/L NO RANGE E [facility] Anion gap in Serum or Plasma Ordered By: Aye Christianson on 12-31-2024 Anion gap [Moles/Vol] 13 mmol/L - [facility] BUN/creatinine ratioOrdered By: Aye Christianson on 12-31-2024 Urea nitrogen/Creatinine [Mass ratio] 14.4 mg/mg - [facility] Basophil percentageOrdered B y: Aye Christianson on 12-31-2024 Basophils/100 WBC (Bld) 0.4 % 0-1 [facility] Bilirubin, totalOrdered By: Aye Christianson on 12-31-2024 Bilirubin [Mass/Vol] 0.77 mg/dL 0.00-1.30 [facility] CBC W/Diff, Automatedon 12-22-2024 Absolute Lymph 3.03 X10 3/uL Normal 0.83-4.51 [facility] Comment on above: Performed By: #### L 500.4050, L506.1001, L501.9985, L500.4100, L501.9520, L100.0100 ####[facility] [address] [place], [address] Absolute Neut 4.1 X10 3/uL Normal 2.0-7.7 [facility] Comment on above: Performed By: #### L 500.4050, L506.1001, L501.9985, L500.4100, L501.9520, L100.0100 ####[facility] [address] [place], [address] Basophils/100 WBC (Bld) 0.4 % Normal 0-1 [facility] Comment on above: Performed By: #### L 500.4050, L506.1001, L501.9985, L500.4100, L501.9520, L100.0100 ####[facility] [address] [place], [address] Eosinophils/100 WBC (Bld) 1.3 % Normal 0-5 [facility] Comment on above: Performed By: #### L 500.4050, L506.1001, L501.9985, L500.4100, L501.9520, L100.0100 ####[facility] [address] [place], [address] Erythrocyte distribution width (RBC) [Ratio] 11.6 % Normal 11.6-14.6 [facility] Comment on above: Performed By: #### L 500.4050, L506.1001, L501.9985, L500.4100, L501.9520, L100.0100 ####[facility] [address] [place], [address] Hematocrit (Bld) [Volume fraction] 44.0 % Normal 40-54 [facility] Comment on above: Performed By: #### L 500.4050, L506.1001, L501.9985, L500.4100, L501.9520, L100.0100 ####[facility] [address] [place], [address] Hemoglobin (Bld) [Mass/Vol] 14.6 g/dL Normal 13.0-16.5 [facility] Comment on above: Performed By: #### L 500.4050, L506.1001, L501.9985, L500.4100, L501.9520, L100.0100 ####[facility] [address] [place], [address] IG% 0.300 Normal 0.0-0.9 [facility] Comment on above: Result Comment: IG% - Immature Granulocytes (promyelocytes, myelocytes and metamyelocytes) > 1% indicates that a LEFT SHIFT is Present. Performed By: #### L 500.4050, L506.1001, L501.9985, L500.4100, L501.9520, L100.0100 ####[facility] [address] [place], [address] Lymphocytes/100 WBC (Bld) 38.1 % Normal 19-41 [facility] Comment on above: Performed By: #### L 500.4050, L506.1001, L501.9985, L500.4100, L501.9520, L100.0100 ####[facility] [address] [place], [address] MCH (RBC) [Entitic mass] 30.0 pg Normal 27.0-32.0 [facility] Comment on above: Performed By: #### L 500.4050, L506.1001, L501.9985, L500.4100, L501.9520, L100.0100 ####[facility] [address] [place], [address] MCHC (RBC) [Mass/Vol] 33.2 g/dL Normal 32-36 [facility] Comment on above: Performed By: #### L 500.4050, L506.1001, L501.9985, L500.4100, L501.9520, L100.0100 ####[facility] [address] [place], [address] MCV (RBC) [Entitic vol] 90.3 fL Normal 80-94 [facility] Comment on above: Performed By: #### L 500.4050, L506.1001, L501.9985, L500.4100, L501.9520, L100.0100 ####[facility] [address] [place], [address] Monocytes/100 WBC (Bld) 8.9 % Normal 0-10 [facility] Comment on above: Performed By: #### L 500.4050, L506.1001, L501.9985, L500.4100, L501.9520, L100.0100 ####[facility] [address] [place], [address] Neutrophils/100 WBC (Bld) 51.0 % Normal 47-70 [facility] Comment on above: Performed By: #### L 500.4050, L506.1001, L501.9985, L500.4100, L501.9520, L100.0100 ####[facility] [address] [place], [address] Nucleated RBC (Bld) [#/Vol] 0 10*3/uL Normal 0-5 [facility] Comment on above: Performed By: #### L 500.4050, L506.1001, L501.9985, L500.4100, L501.9520, L100.0100 ####[facility] [address] [place], [address] Platelet mean volume (Bld) [Entitic vol] 10.5 fL Normal 6.2-12.0 [facility] Comment on above: Performed By: #### L 500.4050, L506.1001, L501.9985, L500.4100, L501.9520, L100.0100 ####[facility] [address] [place], [address] Platelets (Bld) [#/Vol] 246 10*3/uL Normal 150-450 [facility] Comment on above: Performed By: #### L 500.4050, L506.1001, L501.9985, L500.4100, L501.9520, L100.0100 ####[facility] [address] [place], [address] RBC (Bld) [#/Vol] 4.87 10*6/uL Normal 4.6-6.2 [facility] Comment on above: Performed By: #### L 500.4050, L506.1001, L501.9985, L500.4100, L501.9520, L100.0100 ####[facility] [address] [place], [place], [id number] RDW SD 38.0 fl Normal 35.1-43.9 [facility] Comment on above: Performed By: #### L 500.4050, L506.1001, L501.9985, L500.4100, L501.9520, L100.0100 ####[facility] [address] [place], [place], [id number] WBC (Bld) [#/Vol] 8.0 10*3/uL Normal 4.4-11.0 [facility] Comment on above: Performed By: #### L 500.4050, L506.1001, L501.9985, L500.4100, L501.9520, L100.0100 ####[facility] [address] [place], [place], [id number] Calculated very low density lipoprotein (VLDL) cholesterol measurementOrdered By: Aye Christianson on 12-31-2024 VLDL Cholesterol 27 mg/dL 5-40 [facility] Carbon dioxide, total [Moles /volume] in Central venous bloodOrdered By: Aye Christianson on 12-31-2024 CO2 [Moles/Vol] 23.7 mmol/L 21.0-32.0 [facility] Chloride assayOrdered By: Al tyrese Christianson on 12-31-2024 Chloride [Moles/Vol] 101 mmol/L 98-108 [facility] Comprehensive Metabolic Prof ilon 12-31-2024 Albumin [Mass/Vol] 4.5 g/dL Normal 3.5-5.0 [facility] Comment on above: Performed By: #### L 500.4050, L506.1001, L501.9985, L500.4100, L501.9520, L100.0100 ####[facility] [address] [place], [address] Albumin/Globulin [Mass ratio] 1.5 {ratio} Normal 0.9-2.4 [facility] Comment on above: Performed By: #### L 500.4050, L506.1001, L501.9985, L500.4100, L501.9520, L100.0100 ####[facility] [address] [place], [address] ALK PHOS 79 U/L Normal 40-129 [facility] Comment on above: Performed By: #### L 500.4050, L506.1001, L501.9985, L500.4100, L501.9520, L100.0100 ####[facility] [address] [place], [address] ALT [Catalytic activity/Vol] 55 U/L High <=46 [facility] Comment on above: Performed By: #### L 500.4050, L506.1001, L501.9985, L500.4100, L501.9520, L100.0100 ####[facility] [address] [place], [address] AST [Catalytic activity/Vol] 37 U/L Normal <=37 [facility] Comment on above: Performed By: #### L 500.4050, L506.1001, L501.9985, L500.4100, L501.9520, L100.0100 ####[facility] [address] [place], [address] Bilirubin [Mass/Vol] 0.77 mg/dL Normal 0.00-1.30 [facility] Comment on above: Performed By: #### L 500.4050, L506.1001, L501.9985, L500.4100, L501.9520, L100.0100 ####[facility] [address] [place], [address] BUN/CRE 14.4 RATIO Normal 10-20 [facility] Comment on above: Performed By: #### L 500.4050, L506.1001, L501.9985, L500.4100, L501.9520, L100.0100 ####[facility] [address] [place], [address] Calcium [Mass/Vol] 10.0 mg/dL Normal 7.6-11.0 [facility] Comment on above: Performed By: #### L 500.4050, L506.1001, L501.9985, L500.4100, L501.9520, L100.0100 ####[facility] [address] [place], [address] Chloride [Moles/Vol] 101 mmol/L Normal 98-108 [facility] Comment on above: Performed By: #### L 500.4050, L506.1001, L501.9985, L500.4100, L501.9520, L100.0100 ####[facility] [address] [place], [address] CO2 [Moles/Vol] 23.7 mmol/L Normal 21.0-32.0 [facility] Comment on above: Performed By: #### L 500.4050, L506.1001, L501.9985, L500.4100, L501.9520, L100.0100 ####[facility] [address] [place], [address] Creatinine [Mass/Vol] 1.07 mg/dL Normal 0.70-1.20 [facility] Comment on above: Performed By: #### L 500.4050, L506.1001, L501.9985, L500.4100, L501.9520, L100.0100 ####[facility] [address] [place], [address] GAP 13 Normal 5-15 [facility] Comment on above: Performed By: #### L 500.4050, L506.1001, L501.9985, L500.4100, L501.9520, L100.0100 ####[facility] [address] [place], [address] GFR/1.73 sq M.predicted among non-blacks MDRD (S/P/Bld) [Vol rate/Area] 87 mL/min/{1.73_m2} Normal >60 [facility] Comment on above: Result Comment: mL/m in/1.73m2 CKD-EPI Creatinine Equation (2020) Performed By: #### L 500.4050, L506.1001, L501.9985, L500.4100, L501.9520, L100.0100 ####[facility] [address] [place], [address] Globulin (S) [Mass/Vol] 3.1 g/dL Normal 2.2-4.2 [facility] Comment on above: Performed By: #### L 500.4050, L506.1001, L501.9985, L500.4100, L501.9520, L100.0100 ####[facility] [address] [place], [address] Glucose [Mass/Vol] 123 mg/dL High 70-99 [facility] Comment on above: Performed By: #### L 500.4050, L506.1001, L501.9985, L500.4100, L501.9520, L100.0100 ####[facility] [address] [place], [address] Potassium [Moles/Vol] 4.2 mmol/L Normal 3.3-5.1 [facility] Comment on above: Performed By: #### L 500.4050, L506.1001, L501.9985, L500.4100, L501.9520, L100.0100 ####[facility] [address] [place], [address] Sodium [Moles/Vol] 137 mmol/L Normal 133-145 [facility] Comment on above: Performed By: #### L 500.4050, L506.1001, L501.9985, L500.4100, L501.9520, L100.0100 ####[facility] [address] [place], [address] T PROT 7.6 g/dL Normal 5.9-8.4 [facility] Comment on above: Performed By: #### L 500.4050, L506.1001, L501.9985, L500.4100, L501.9520, L100.0100 ####[facility] [address] [place], [address] Urea nitrogen [Mass/Vol] 15 mg/dL Normal 4-19 [facility] Comment on above: Performed By: #### L 500.4050, L506.1001, L501.9985, L500.4100, L501.9520, L100.0100 ####[facility] [address] [place], [address] Creatinine Unsp time (U) [Ma ss/Vol]Ordered By: Aye Christianson on 12-31-2024 Creatinine (U) [Mass/Vol] 401.00 mg/dL High 39.00-25 9.00 [facility] Eosinophil percentageOrdered By: Aye Christianson on 12-31-2024 Eosinophils/100 WBC (Bld) 1.3 % 0-5 [facility] Erythrocyte distribution wid th (RBC) [Ratio]Ordered By: Aye Christianson on 12-31-2024 Erythrocyte distribution width (RBC) [Entitic vol] 38.0 fL 35.1-43.9 [facility] Erythrocyte distribution wid th ratioOrdered By: Aye Christianson on 12-31-2024 Erythrocyte distribution width (RBC) [Ratio] 11.6 % 11.6-14.6 [facility] GFR/1.73 sq M.predicted charlie g non-blacks MDRD (S/P/Bld) [Vol rate/Area]Ordered By: Aye Christianson on 12-31-2024 Estimated GFR (MDRD) Non-Af Amer 87 >60 [facility] Comment on above: mL/min/1.73m2 CKD-EP I Creatinine Equation (2020) Hematocrit Auto (Bld) [Volum e fraction]Ordered By: Aye Christianson on 12-31-2024 Hematocrit (Bld) [Volume fraction] 44.0 % 40-54 [facility] Hemoglobin A1con 12-31-2024 HbA1c (Bld) [Mass fraction] 8.0 % Normal <=5.6 [facility] Comment on above: Performed By: #### L 500.4050, L506.1001, L501.9985, L500.4100, L501.9520, L100.0100 ####[facility] [address] [place], [place], [id number] Hemoglobin A1c percentageOrd ered By: Aye Christianson on 12-31-2024 HbA1c (Bld) [Mass fraction] 8.0 % >5.7 [facility] Hemoglobin measurementOrdere d By: Aye Christianson on 12-31-2024 Hemoglobin (Bld) [Mass/Vol] 14.6 g/dL 13.0-16.5 [facility] Immature granulocytes/100 WB C Auto (Bld)Ordered By: Aye Christianson on 12-31-2024 Immature granulocytes/100 WBC (Bld) 0.300 % 0.0-0.9 [facility] [facility] Comment on above: IG% - Immature Granu locytes (promyelocytes, myelocytes and metamyelocytes) > 1% indicates that a LEFT SHIFT is Present. LDL calc ser/plasOrdered By: Aye Christianson on 12-31-2024 LDL Cholesterol, Calculated 77 mg/dL [facility] Comment on above: Lwwwftsygy=158-509 m g/dL & Higher Cjzl=536 mg/dL or greater Laboratory - Chemistry and C hemistry - challengeOrdered By: Aye Christianson on 12-31-2024 AST [Catalytic activity/Vol] 37 U/L <38 [facility] Lipid Profileon 12-31-2024 CHOL:HDL 4.18 Normal [facility] Comment on above: Performed By: #### L 500.4050, L506.1001, L501.9985, L500.4100, L501.9520, L100.0100 ####[facility] [address] [place], [address] Cholesterol [Mass/Vol] 136 mg/dL Normal <=200 [facility] Comment on above: Result Comment: Chol esterol level, Desirable <200 mg/dL Borderline high cholesterol 200-239 mg/dL High cholesterol >=240 mg/dL Recommendations of the NCEP Adult Treatment Panel for the following risk-cutoff thresholds for the [place] population. Performed By: #### L 500.4050, L506.1001, L501.9985, L500.4100, L501.9520, L100.0100 ####[facility] [address] [place], [address] Cholesterol in HDL [Mass/Vol] 33 mg/dL Low [facility] Comment on above: Result Comment: Angela onal Cholesterol Education Program (NCEP) guidelines: <40 mg/dL: Low HDL-cholesterol (major risk factor for CHD) >= 60 mg/dL: High HDL-cholesterol (negative risk factor for CHD) HDL-cholesterol is affected by a number of factors, e.g. smoking, exercise, hormones, sex and age. Performed By: #### L 500.4050, L506.1001, L501.9985, L500.4100, L501.9520, L100.0100 ####[facility] [address] [place], [address] Cholesterol in LDL [Mass/Vol] 77 mg/dL Normal [facility] Comment on above: Result Comment: Bord ujxzam=381-022 mg/dL Higher Szlc=925 mg/dL or greater Performed By: #### L 500.4050, L506.1001, L501.9985, L500.4100, L501.9520, L100.0100 ####[facility] [address] [place], [address] Cholesterol in VLDL [Mass/Vol] 27 mg/dL Normal 5-40 [facility] Comment on above: Performed By: #### L 500.4050, L506.1001, L501.9985, L500.4100, L501.9520, L100.0100 ####[facility] [address] [place], [address] Triglyceride [Mass/Vol] 134 mg/dL Normal [facility] Comment on above: Result Comment: The drugs N-Acetylcysteine and Metamizole may falsely depress this assay. Normal range: <150 mg/dL Borderline High: 150-199 mg/dL High: 200-499 mg/dL Very High: >500 mg/dL Performed By: #### L 500.4050, L506.1001, L501.9985, L500.4100, L501.9520, L100.0100 ####[facility] [address] [place], [address] Lymphocytes Auto (Unsp spec) [#/Vol]Ordered By: Aye Christianson on 12-31-2024 Lymphocytes (Bld) [#/Vol] 3.03 10*3/uL 0.83-4.5 1 [facility] Lymphocytes/100 WBC Auto (Un sp spec)Ordered By: Aye Christianson on 12-31-2024 Lymphocytes/100 WBC (Bld) 38.1 % 19-41 [facility] MCV (mean corpuscular volume ) determinationOrdered By: Aye Christianson on 12-31-2024 MCV (RBC) [Entitic vol] 90.3 fL 80-94 [facility] Mean corpuscular hemoglobin (MCH) determinationOrdered By: Aye Christianson on 12-31-2024 MCH (RBC) [Entitic mass] 30.0 pg 27.0-32.0 [facility] Mean corpuscular hemoglobin concentration (MCHC) determinationOrdered By: Aye Christianson on 12-31-2024 MCHC (RBC) [Mass/Vol] 33.2 g/dL 32-36 [facility] Mean platelet volume determi nationOrdered By: Aye Christianson on 12-31-2024 Platelet mean volume (Bld) [Entitic vol] 10.5 fL 6.2-12.0 [facility] Microalb:Creat Ratio,Random URon 12-31-2024 Creatinine [Mass/Vol] 401.00 mg/dL High 39.00-259.00 [facility] Comment on above: Performed By: #### L 502.0250 ####[facility] [address] [place], [address] MALB:CREAT 90.5 mg/g CRE Normal [facility] Comment on above: Performed By: #### L 502.0250 ####[facility] [address] [place], [address] MICROALBUMIN,UR 36.3 mg/L Normal NO RANGE EST. [facility] Comment on above: Performed By: #### L 502.0250 ####[facility] [address] [place], [address] Microalbumin/creat ratio urO rdered By: Aye Christianson on 12-31-2024 Urine Microalbumin/Creatinine Ratio 90.5 mg/g CRE [facility] Monocyte percentageOrdered B y: Aye Christianson on 12-31-2024 Monocytes/100 WBC (Bld) 8.9 % 0-10 [facility] Neutrophil percentageOrdered By: Aye Christianson on 12-31-2024 Neutrophils/100 WBC (Bld) 51.0 % 47-70 [facility] Nucleated red blood cell per centageOrdered By: Aye Christianson on 12-31-2024 Nucleated RBC/100 WBC (Bld) [Ratio] 0 % 0-5 [facility] Platelet countOrdered By: Minor Christianson on 12-31-2024 Platelets (Bld) [#/Vol] 246 10*3/uL 150-450 [facility] Potassium (Unsp spec) [Mass/ Vol]Ordered By: Aye Christianson on 12-31-2024 Potassium [Moles/Vol] 4.2 mmol/L 3.3-5.1 [facility] RBC Auto (Bld) [#/Vol]Ordere d By: Aye Christianson on 12-31-2024 RBC (Bld) [#/Vol] 4.87 10*6/uL 4.6-6.2 [facility] Screening total cholesterol/ high density lipoprotein (HDL) cholesterol ratioOrdered By: Aye Christianson on 12-31-2024 Cholesterol.total/Cholest ryan in HDL [Mass ratio] 4.18 {ratio} [facility] Serum creatinine measurement (mass/volume)Ordered By: Aye Christianson on 12-31-2024 Creatinine [Mass/Vol] 1.07 mg/dL 0.70-1.20 [facility] Serum globulin measurementOr dered By: Aye Christianson on 12-31-2024 Globulin (S) [Mass/Vol] 3.1 g/dL 2.2-4.2 [facility] Serum glucose measurement (m ass/volume)Ordered By: Aye Christianson on 12-31-2024 Glucose [Mass/Vol] 123 mg/dL High 70-99 [facility] Serum or plasma alanine ojeda otransferase (ALT) measurementOrdered By: Aye Christianson on 12-31-2024 ALT [Catalytic activity/Vol] 55 U/L High <47 [facility] Serum or plasma albumin julio cesar urement (mass/volume)Ordered By: Aye Christianson on 12-31-2024 Albumin [Mass/Vol] 4.5 g/dL 3.5-5.0 [facility] Serum or plasma albumin/glob ulin mass ratioOrdered By: Aye Christianson on 12-31-2024 Albumin/Globulin [Mass ratio] 1.5 {ratio} 0.9-2.4 [facility] Serum or plasma alkaline aria sphatase measurementOrdered By: Aye Christianson on 12-31-2024 ALP [Catalytic activity/Vol] 79 U/L 40-129 [facility] Serum or plasma calcium julio cesar urement (mass/volume)Ordered By: Aye Christianson on 12-31-2024 Calcium [Mass/Vol] 10.0 mg/dL 7.6-11.0 [facility] Serum or plasma cholesterol in HDL measurement (mass/volume)Ordered By: Aye Christianson on 12-31-2024 Cholesterol in HDL [Mass/Vol] 33 mg/dL Low >40 [facility] Comment on above: National Cholesterol Education Program (NCEP) guidelines:<40 mg/dL: Low HDL-cholesterol (major risk factor for CHD)>= 60 mg/dL: High HDL-cholesterol (negative risk factor for CHD)HDL-cholesterol is affected by a number of factors, e.g. smoking, exercise, hormones, sex and age. Serum or plasma cholesterol measurement (mass/volume)Ordered By: Aye Christianson on 12-31-2024 Cholesterol [Mass/Vol] 136 mg/dL <201 [facility] Comment on above: Cholesterol level, D esirable <200 mg/dLBorderline high cholesterol 200-239 mg/dLHigh cholesterol >=240 mg/dLRecommendations of the NCEP Adult Treatment Panel for the following risk-cutoff thresholds for the [place] population. Serum or plasma urea nitroge n measurement (mass/volume)Ordered By: Aye Christianson on 12-31-2024 Urea nitrogen [Mass/Vol] 15 mg/dL 4-19 [facility] Sodium levelOrdered By: Ana Christianson on 12-31-2024 Sodium [Moles/Vol] 137 mmol/L 133-145 [facility] TSH DL <= 0.005 mIU/L QnOrde red By: Aye Christianson on 12-31-2024 Thyroid Stimulating Hormone (TSH) 1.890 uIU/mL 0.300-4.200 [facility] Thyroid Stim Hormone (TSH)on 12-31-2024 TSH 1.890 uIU/mL Normal 0.300-4.200 [facility] Comment on above: Performed By: #### L 500.4050, L506.1001, L501.9985, L500.4100, L501.9520, L100.0100 ####[facility] [address] [place], [address] Total proteinOrdered By: Donta Christianson on 12-31-2024 Protein [Mass/Vol] 7.6 g/dL 5.9-8.4 [facility] Triglycerides measurementOrd ered By: Aye Christianson on 12-31-2024 Triglyceride [Mass/Vol] 134 mg/dL <199 [facility] Comment on above: The drugs N-Acetylcy steine and Metamizole may falsely depress this assay. Normal range: <150 mg/dLBorderline High: 150-199 mg/dLHigh: 200-499 mg/dLVery High: >500 mg/dL Vitamin D, 25-hydroxyOrdered By: Aye Christianson on 12-31-2024 Vitamin D 25-Hydroxy 9.8 ng/mL Low 30-100 [facility] Comment on above: Vitamin D StatusDefi ciency: <20 ng/mL (50nmol/L)Insufficiency: 20-30 ng/mL (50-75 nmol/L)Sufficiency: 30-100 ng/mL (75-250 nmol/L)Toxicity: >100 ng/mL (>250 nmol/L) Vitamin D,25 Hydroxyon 12-31 Vitamin D 25-OH 9.8 ng/mL Low 30-100 [facility] Comment on above: Result Comment: Danielle min D Status Deficiency: <20 ng/mL (50nmol/L) Insufficiency: 20-30 ng/mL (50-75 nmol/L) Sufficiency: 30-100 ng/mL (75-250 nmol/L) Toxicity: >100 ng/mL (>250 nmol/L) Performed By: #### L 500.4050, L506.1001, L501.9985, L500.4100, L501.9520, L100.0100 ####[facility] [address] [place], [address] White blood cell (WBC) count Ordered By: Aye Christianson on 12-31-2024 WBC (Bld) [#/Vol] 8.0 10*3/uL 4.4-11.0 [facility] Internal Medicine Office Vis iton 12-30-2024 Internal Medicine Office Visit [facility] [address] [place] [address] [place] [address] OFFICE VISIT Date of Service: 12/31/24 MR#: [id number] Acct: [id number] Name: MAYRA MCCALLUM Rep #: [id number] : 1980 Provider: Dr. Aye ramirez MD Age/Sex: 44/M Location: [facility] Status: Signed Intake Vital Signs 07/01/24 07:29 12/31/24 07:37 Height 6 ft 6 ft Weight: 223 lb BMI 30.2 BP 122/82 H Blood Pressure Location Lt brachial Position Sitting Respiration 16 Pulse 76 Pulse Source Monitor Temp 97.3 F L Temp Source Temporal Pulse Oximetry (%) 98 Oxygen Delivery Method room air Intake Visit Reasons: YEARLY Chief Complaint: 6m f/u Mold Maker Required: No Is patient in pain?: No Allergies No Known Allergies Allergy (Unverified 12/31/24 07:27) Medications ???Medication ???Instructions ???Recorded ???Confirmed ???Type blood sugar diagnostic (Advanced #100 ea 12/12/22 12/31/24 Rx Glucose Meter Test Strips) blood-glucose meter (Advanced #1 ea 12/12/22 12/31/24 Rx Glucose Meter) lancets (Accu-Chek Softclix #100 ea 12/12/22 12/31/24 Rx Lancets) rizatriptan 10 mg disintegrating 10 mg PO PRN PRN MIGRAINES #10 tab s 07/01/24 12/31/24 Rx tablet (Maxalt-MECHANICAL MANAGER) atorvastatin 10 mg tablet (Lipitor) 10 mg PO QHS #90 tabs 12/31/24 12/31/24 Rx lisinopril 2.5 mg tablet 2.5 mg PO DAILY #90 tabs 12/31/24 12/31/24 Rx metformin 500 mg tablet 500 mg PO BID #180 tabs 12/31/24 0 12/31/24 Rx pantoprazole 40 mg tablet,delayed 40 mg PO DAILY #90 tabs 12/31/24 12/31/24 Rx release (Protonix) sertraline 25 mg tablet (Zoloft) 25 mg PO QDAY #30 tabs 12/31/24 Rx Nurse's Note: Pt is fasting if labs are needed. [facility] Medical History (Updated 12/31/24 @ 07:[address] Aye Christianson MD) Family history of prostate cancer Encounter to discuss colonoscopy results Wears glasses Diabetes Blackout Migraine headache Dietary restriction Non-smoker GERD (gastroesophageal reflux disease) History of shingles Headache, migraine Surgical History H/O endoscopy H/O: vasectomy No pertinent past surgical history Family History Mother Arthritis CVA (cerebral vascular accident) High cholesterol Ulcer Father Arthritis Cancer skin Diabetes High cholesterol Hypertension Melanoma Seizures Grandmother Arthritis Cancer cervical Grandfather Arthritis Sister Breast cancer Grandmother Alzheimer disease Ulcer Grandfather Heart failure Myocardial infarction Other Mental disorder Social History (Updated 12/31/24 @ 07:[address] Aye Christianson MD) adopted: No household members: none number of children: 2 current occupational status: employed current occupation: human resources manager manufacturing pets and animals: Yes (1) pets and animals: cat(s) sexually active: No Smoking Status: Never smoker Electronic Cigarette Use: not used alcohol intake: current alcohol intake frequency: holidays/special occasions only substance use type: does not use caffeine: Yes (4) Type: carbonated beverages frequency: 3-4 times per week do you feel safe at home: Yes Questionnaire PQH-9 BMS Over the last 2 weeks, how often have you been bothered by any of the following problems? 1. Little interest or pleasure in doing things: several days 2. Feeling down, depressed, or hopeless: not at all 3. Trouble falling or staying asleep, or sleeping too much: several days 4. Feeling tired or having little energy: several days 5. Poor appetite or overeating: not at all 6. Feeling bad about yourself - or that you are a failure or have let yourself and your family down: several days 7. Trouble concentrating on things, such as reading the newspaper or watching television: several days 8. Moving or speaking so slowly that other people could have noticed? - Or the opposite - being so fidgety or restless that you have been moving around a lot more than usual: more than half the days 9. Thoughts that you would be better off or of hurting yourself in some way: not at all Total score: 7 If you checked off any problems, how difficult have these problems made it for you to do your work, take care of things at home, or get along with other people?: somewhat difficult Source: Developed by Drs. Miguel Cameron, Kristal Paul, Erick Lindsey and colleagues, with an educational huma from [employer]. RAISA-7 BMS RAISA-7 Feeling nervous, anxious, or on edge: 1 = Several days Not being able to stop or control worryin = More than half the days Worrying too much about different things: 2 = More than half the days Trouble relaxin = Nearly every day Being so restless that it is hard to sit still: 2 = More than half t (more content not included)... Normal [facility] CBC-Complete Blood Cnt No Di ffon 07-01-2024 Erythrocyte distribution width (RBC) [Ratio] 11.9 % Normal 11.6-14.6 [facility] Comment on above: Performed By: #### L 500.4100, L100.0500, L500.4050 #### [facility] [address] [place], [address] Hematocrit (Bld) [Volume fraction] 45.3 % Normal 40-54 [facility] Comment on above: Performed By: #### L 500.4100, L100.0500, L500.4050 #### [facility] [address] [place], [address] Hemoglobin (Bld) [Mass/Vol] 14.7 g/dL Normal 13.0-16.5 [facility] Comment on above: Performed By: #### L 500.4100, L100.0500, L500.4050 #### [facility] [address] [place], [address] MCH (RBC) [Entitic mass] 29.6 pg Normal 27.0-32.0 [facility] Comment on above: Performed By: #### L 500.4100, L100.0500, L500.4050 #### [facility] [address] [place], [address] MCHC (RBC) [Mass/Vol] 32.5 g/dL Normal 32-36 [facility] Comment on above: Performed By: #### L 500.4100, L100.0500, L500.4050 #### [facility] [address] [place], [address] MCV (RBC) [Entitic vol] 91.1 fL Normal 80-94 [facility] Comment on above: Performed By: #### L 500.4100, L100.0500, L500.4050 #### [facility] [address] [place], [address] Platelet mean volume (Bld) [Entitic vol] 10.3 fL Normal 6.2-12.0 [facility] Comment on above: Performed By: #### L 500.4100, L100.0500, L500.4050 #### [facility] [address] [place], [address] Platelets (Bld) [#/Vol] 264 10*3/uL Normal 150-450 [facility] Comment on above: Performed By: #### L 500.4100, L100.0500, L500.4050 #### [facility] [address] [place], [address] RBC (Bld) [#/Vol] 4.97 10*6/uL Normal 4.6-6.2 [facility] Comment on above: Performed By: #### L 500.4100, L100.0500, L500.4050 #### [facility] [address] [place], [address] RDW SD 39.6 fl Normal 35.1-43.9 [facility] Comment on above: Performed By: #### L 500.4100, L100.0500, L500.4050 #### [facility] [address] [place], [address] WBC (Bld) [#/Vol] 7.7 10*3/uL Normal 4.4-11.0 [facility] Comment on above: Performed By: #### L 500.4100, L100.0500, L500.4050 #### [facility] [address] [place], [address] [facility] 07-01-2024 Albumin [Mass/Vol] 4.1 g/dL Normal 3.2-5.0 [facility] Comment on above: Performed By: #### L 500.4100, L100.0500, L500.4050 #### [facility] [address] [place], [address] Albumin/Globulin [Mass ratio] 1.0 {ratio} Normal 0.9-2.4 [facility] Comment on above: Performed By: #### L 500.4100, L100.0500, L500.4050 #### [facility] [address] [place], [address] ALK P 71 U/L Normal 45-117 [facility] Comment on above: Performed By: #### L 500.4100, L100.0500, L500.4050 #### [facility] [address] [place], [address] ALT [Catalytic activity/Vol] 99 U/L High 16-61 [facility] Comment on above: Performed By: #### L 500.4100, L100.0500, L500.4050 #### [facility] [address] [place], [address] AST [Catalytic activity/Vol] 50 U/L High 15-37 [facility] Comment on above: Performed By: #### L 500.4100, L100.0500, L500.4050 #### [facility] [address] [place], [address] Bilirubin [Mass/Vol] 1.20 mg/dL High 0.20-1.00 [facility] Comment on above: Result Comment: For patients on eltrombopag therapy, use of Dimension [place] TBIL is not recommended. Performed By: #### L 500.4100, L100.0500, L500.4050 #### [facility] [address] [place], [address] BUN/CRE 9.1 RATIO Low 10-20 [facility] Comment on above: Performed By: #### L 500.4100, L100.0500, L500.4050 #### [facility] [address] [place], [address] CA,Total 9.8 mg/dL Normal 8.5-10.1 [facility] Comment on above: Performed By: #### L 500.4100, L100.0500, L500.4050 #### [facility] [address] [place], [address] Chloride [Moles/Vol] 103 mmol/L Normal 98-107 [facility] Comment on above: Performed By: #### L 500.4100, L100.0500, L500.4050 #### [facility] [address] [place], [address] CO2 [Moles/Vol] 28.0 mmol/L Normal 21.0-32.0 [facility] Comment on above: Performed By: #### L 500.4100, L100.0500, L500.4050 #### [facility] [address] [place], [address] Creatinine [Mass/Vol] 1.21 mg/dL Normal 0.70-1.30 [facility] Comment on above: Result Comment: The validity of the calculated GFR GFRAA in patients over 70 years has not been determined. Clinical correlation is essential. Performed By: #### L 500.4100, L100.0500, L500.4050 #### [facility] [address] [place], [address] EST GFR - AA 83 mL/min Normal >60 [facility] Comment on above: Result Comment: Afri can [place] GFR Calc Performed By: #### L 500.4100, L100.0500, L500.4050 #### [facility] [address] [place], [address] GAP 7 Normal 5-15 [facility] Comment on above: Performed By: #### L 500.4100, L100.0500, L500.4050 #### [facility] [address] [place], [address] GFR/1.73 sq M.predicted among non-blacks MDRD (S/P/Bld) [Vol rate/Area] 69 mL/min/{1.73_m2} Normal >60 [facility] Comment on above: Result Comment: Non- GFR Calc Performed By: #### L 500.4100, L100.0500, L500.4050 #### [facility] [address] [place], [address] Globulin (S) [Mass/Vol] 4.0 g/dL Normal 2.2-4.2 [facility] Comment on above: Performed By: #### L 500.4100, L100.0500, L500.4050 #### [facility] [address] [place], [address] Glucose [Mass/Vol] 142 mg/dL High 74-106 [facility] Comment on above: Result Comment: Fast ing Glucose result greater than or equal to 126 mg/dL suggests DIABETES MELLITUS per A.D.A. criteria. Performed By: #### L 500.4100, L100.0500, L500.4050 #### [facility] [address] [place], [address] Potassium [Moles/Vol] 4.3 mmol/L Normal 3.5-5.1 [facility] Comment on above: Performed By: #### L 500.4100, L100.0500, L500.4050 #### [facility] [address] [place], [address] Sodium [Moles/Vol] 138 mmol/L Normal 136-145 [facility] Comment on above: Performed By: #### L 500.4100, L100.0500, L500.4050 #### [facility] [address] [place], [address] T PROT 8.1 g/dL Normal 6.4-8.2 [facility] Comment on above: Performed By: #### L 500.4100, L100.0500, L500.4050 #### [facility] [address] [place], [address] Urea nitrogen [Mass/Vol] 11 mg/dL Normal 7-18 [facility] Comment on above: Performed By: #### L 500.4100, L100.0500, L500.4050 #### [facility] [address] [place], [address] Internal Medicine Office Vis bulmaro 07-01-2024 Internal Medicine Office Visit [facility] [address] [place] [address] [place] [address] OFFICE VISIT Date of Service: 07/01/24 MR#: [id number] Acct: [id number] Name: MAYRA MCCALLUM Rep #: [id number] : 1980 Provider: JESUS Morales Age/Sex: 44/M Location: [facility] Status: Signed Intake Vital Signs 12/30/23 14:22 02/04/24 15:37 02/19/24 08:36 07/01/24 07:29 Height 6 ft 6 ft 6 ft 6 ft Weight: 223 lb BMI 30.2 BP 122/80 H Blood Pressure Location Lt brachial Position Sitting Respiration 16 Pulse 77 Pulse Source Monitor Temp 97.7 F L Temp Source Temporal Pulse Oximetry (%) 96 Oxygen Delivery Method room air Intake Visit Reasons: 6 M FU Chief Complaint: 6m f/u Mold Maker Required: No Accompanied by: Self Is patient in pain?: No Allergies No Known Allergies Allergy (Unverified 07/01/24 07:26) Medications ???Medication ???Instructions ???Recorded ???Confirmed ???Type blood sugar diagnostic (Advanced #100 ea 12/12/22 07/01/24 Rx Glucose Meter Test Strips) blood-glucose meter (Advanced #1 ea 12/12/22 07/01/24 Rx Glucose Meter) lancets (Accu-Chek Softclix #100 ea 12/12/22 07/01/24 Rx Lancets) atorvastatin 10 mg tablet (Lipitor) 10 mg PO QHS #90 tabs 07/01/24 07/01/24 Rx lisinopril 2.5 mg tablet 2.5 mg PO DAILY #90 tabs 07/01/24 07/01/24 Rx metformin 500 mg tablet 500 mg PO BID #180 tabs 07/01/24 07/01/24 Rx pantoprazole 40 mg tablet,delayed 40 mg PO DAILY #90 tabs 07/01/24 07/01/24 Rx release (Protonix) rizatriptan 10 mg disintegrating 10 mg PO PRN PRN MIGRAINES #10 tabs 07/01/24 07/01/24 Rx tablet (Maxalt-MECHANICAL MANAGER) PFSH Medical History Wears glasses Diabetes Blackout Migraine headache Dietary restriction Non-smoker GERD (gastroesophageal reflux disease) History of shingles Headache, migraine Surgical History No pertinent past surgical history Family History Mother Arthritis CVA (cerebral vascular accident) High cholesterol Ulcer Father Arthritis Cancer skin Diabetes High cholesterol Hypertension Melanoma Seizures Grandmother Arthritis Cancer cervical Grandfather Arthritis Sister Breast cancer Grandmother Alzheimer disease Ulcer Grandfather Heart failure Myocardial infarction Other Mental disorder Social History household members: spouse current occupational status: employed current occupation: human resources manager manufacturing Smoking Status: Never smoker Electronic Cigarette Use: not used alcohol intake: never substance use type: does not use what type of physical activity do you participate in: none do you feel safe at home: Yes HPI HPI Chief Complaint: 6m f/u Details: MAYRA MCCALLUM, is a 44 M who presents to the office today for diabetes check. He has been diagnosed as diabetic over 2 years now. He states that he checks sugars randomly once daily (fasting, non, post-prandial). He states that morning are between 110 and 140 while after dinner (2hr) they are between 140 and 170. He has not had any extreme highs / lows. Patient does exercise between 2 and 3 times per week He states that his diet isn't bad but feels like its a little worse than it was as now he is cooking for himself He does not see an eye doctor regular although states that he has not any recent vision changes Has not seen cofounder. He does regular foot checks He does not take a baby ASA or CoQ-10 He does get migraines but they are well controlled having one or two over the past 6 months HE does drink a lot of water (close to 100 oz of water) Patient does not use nicotine No ETOH use He does drink soda but only one 20oz diet per day His GERD has been well controlled. He previously was on omeprazole but is much better controlled on the pantoprazole. He has no other symptoms at this time Patient's father does have prostate Cancer HE has had colonoscopy (last year) ROS Const Constitutional: No body ache, chills, excessive sweating, fatigue, fever(s), frequent falls, headache(s), snoring, weakness or change in appetite Eyes Eyes: No blurry vision, change in vision, eye pain or Light sensitivity ENT ENT: No abnormal hearing, ear or mastoid pain, tinnitus, nasal congestion, headache(s), neck pain or sore throat Resp Respiratory: No cough, shortness of breath, snoring or wheezing Cardio Cardiology: No chest pain at rest, chest pain with exertion, excessive sweating, dyspnea on exertion, lightheadedness, orthopnea or palpitations Gastro GI: No abdominal pain, change in bowel habits, constipation, cramping, diarrhea, nausea/dyspepsia or vomiting Genitourinary Ma (more content not included)... Normal [facility] Lipid Profileon 07-01-2024 Cholesterol [Mass/Vol] 213 mg/dL High 200 [facility] Comment on above: Result Comment: <200 mg/dL Desirable 200-240 mg/dL Borderline >240 mg/dL High Risk Performed By: #### L 500.4100, L100.0500, L500.4050 #### [facility] [address] [place], [address] Cholesterol in HDL [Mass/Vol] 37 mg/dL Low [facility] Comment on above: Result Comment: The drugs N-Acetylcysteine and Metamizole may falsely depress this assay. Reference Range HDL <40 mg/dL Low HDL Cholesterol HDL >or= 60 mg/dL High HDL Cholesterol Performed By: #### L 500.4100, L100.0500, L500.4050 #### [facility] [address] [place], [address] Cholesterol in LDL [Mass/Vol] 141 mg/dL High 0-130 [facility] Comment on above: Performed By: #### L 500.4100, L100.0500, L500.4050 #### [facility] [address] [place], [address] Cholesterol in VLDL [Mass/Vol] 35 mg/dL Normal 5-40 [facility] Comment on above: Performed By: #### L 500.4100, L100.0500, L500.4050 #### [facility] [address] [place], [address] Triglyceride [Mass/Vol] 175 mg/dL Normal [facility] Comment on above: Result Comment: The drugs N-Acetylcysteine and Metamizole may falsely depress this assay. Serum Triglycerides Reference Interval Normal <150 mg/dL Borderline high 150 - 199 mg/dL High 200 - 499 mg/dL Very High > or = 500 mg/dL Performed By: #### L 500.4100, L100.0500, L500.4050 #### [facility] [address] [place], [address] Surgery Visit Reporton 03-27 Surgery Visit Report [facility] [address] [place] [address] OFFICE VISIT Date of Service: 03/27/24 MR#: [id number] Acct: [id number] Name: MAYRA MCCALLUM Rep #: [id number] : 1980 Provider: Dr. Jt mckeon MD Age/Sex: 44/M Location: [facility] Status: Signed Intake Vital Signs 02/19/24 08:36 Height 6 ft Weight: 221 lb 6 oz BMI 30.0 BP 122/82 H Blood Pressure Location Rt brachial Position Sitting Respiration 18 Pulse 82 Pulse Source Monitor Temp 97.2 F L Temp Source Temporal Pulse Oximetry (%) 96 Oxygen Delivery Method room air Intake Visit Reasons: vasectomy Chief Complaint: vasectomy Is patient in pain?: No Allergies No Known Allergies Allergy (Unverified 03/27/24 12:52) Medications ???Medication ???Instructions ???Recorded ???Confirmed ???Type blood sugar diagnostic (Advanced #100 ea 12/12/22 03/27/24 Rx Glucose Meter Test Strips) blood-glucose meter (Advanced #1 ea 12/12/22 03/27/24 Rx Glucose Meter) lancets (Accu-Chek Softclix #100 ea 12/12/22 03/27/24 Rx Lancets) rizatriptan 10 mg disintegrating 10 mg PO PRN PRN MIGRAINES 12/17/22 03/27/24 History tablet (Maxalt-MECHANICAL MANAGER) atorvastatin 10 mg tablet (Lipitor) 10 mg PO QHS #30 tabs 12/30/23 03/27/24 Rx lisinopril 2.5 mg tablet 2.5 mg PO DAILY #30 tabs 12/30/23 03/27/24 Rx metformin 500 mg tablet 500 mg PO BID #60 tabs 12/30/23 03/27/24 Rx pantoprazole 40 mg tablet,delayed 40 mg PO DAILY #30 tabs 12/30/23 03/27/24 Rx release (Protonix) Have you fallen in the past year?: No Subjective Details: Patient is doing well after vasectomy with no issues Objective Details: Incisions are clean dry and intact and healed well. Coding Level of Care Code Global Post Op Diagnoses Encounter for sterilization Z30.2 [facility] Medical History Wears glasses Diabetes Blackout Migraine headache Dietary restriction Non-smoker GERD (gastroesophageal reflux disease) History of shingles Headache, migraine Surgical History No pertinent past surgical history Family History Mother Arthritis CVA (cerebral vascular accident) High cholesterol Ulcer Father Arthritis Cancer skin Diabetes High cholesterol Hypertension Melanoma Seizures Grandmother Arthritis Cancer cervical Grandfather Arthritis Sister Breast cancer Grandmother Alzheimer disease Ulcer Grandfather Heart failure Myocardial infarction Other Mental disorder Social History household members: spouse current occupational status: employed current occupation: human resources manager manufacturing Smoking Status: Never smoker Electronic Cigarette Use: not used alcohol intake: never substance use type: does not use what type of physical activity do you participate in: none do you feel safe at home: Yes Assessment and Plan (No Qualifiers) Assessment and Plan (1) Encounter for sterilization: Status: Acute Plan: Patient is doing well after vasectomy. I removed his sutures. His incisions are clean dry and intact. Follow-up as needed. I have ordered his 2 semen analysis testing given him specimen cups. He was once again informed he is not sterile yet until he has 2 consecutive negative semen analysis test. Jt Nielson MD Pager: [facility] [address] [place] [address] [address] [place] [address] Office: 03/27/24 962 Date Jt Nielson MD [facility] Signature: Date (if applicable) CC: Normal [facility] Surgery Specimen Level IIon 03-20-2024 Surgery Specimen Level II ----- Patient Age/Sex Location Account Attending Physician MAYRA MCCALLUM 44/M LABSPEC [id number] Dr. Jt Nielson MD Specimen: [id number] Received: 03/20/24 Status: MEDINA Sifuentes Num: [id number] Spec Type: VAS Subm Dr: Dr. Jt Nielson MD HEADER OPERATION: Bilateral partial vasectomy PRE-OP DIAGNOSIS: Sterilization TISSUE SUBMITTED: A- Right vas deferens, B- Left vas deferens MICROSCOPIC DIAGNOSIS A. Right vas deferens, segmental vasectomy: Complete cross-section of vas deferens with no pathologic change. B. Left vas deferens, segmental vasectomy: Complete cross-section of vas deferens with no pathologic change. AM: 03/24/2024 MICROSCOPIC DESCRIPTION Slides are reviewed. GROSS DESCRIPTION A - Received is one container designated right vas deferens. The specimen consists of a tubular segment of temple soft tissue measuring 0.6 cm in length and 0.2 cm in diameter. The specimen is sectioned and submitted entirely in one cassette. B - Received is one container designated left vas deferens. The specimen consists of a tubular segment of temple soft tissue measuring 1.2 cm in length and 0.2 cm in diameter. The specimen is sectioned and submitted entirely in one cassette. / SJ: 03/23/2024 TC:4 CPT: 31396 x2 Patient Age/Sex Location Account Attending Physician MAYRA MCCALLUM 44/M LABSPEC [id number] Dr. Jt Nielson MD Signed (signatur e on file) Dr. Fran Jansen DO 03/24/24 1111 Normal [facility] Comment on above: Performed By: #### P CARLTON #### [facility] [address] [place], [place], [address] Surgery Visit Reporton 03-20 Surgery Visit Report [facility] [address] [place], [place] [address] OFFICE VISIT Date of Service: 03/20/24 MR#: [id number] Acct: [id number] Name: MAYRA MCCALLUM Rep #: [id number] : 1980 Provider: Dr. Jt mckeon MD Age/Sex: 44/M Location: [facility] Status: Signed Intake Vital Signs 02/19/24 08:36 Height 6 ft Weight: 221 lb 6 oz BMI 30.0 BP 122/82 H Blood Pressure Location Rt brachial Position Sitting Respiration 18 Pulse 82 Pulse Source Monitor Temp 97.2 F L Temp Source Temporal Pulse Oximetry (%) 96 Oxygen Delivery Method room air Intake Visit Reasons: Vasectomy Chief Complaint: vasectomy Mold Maker Required: No Is patient in pain?: No Allergies No Known Allergies Allergy (Unverified 03/20/24 12:58) Medications ???Medication ???Instructions ???Recorded ???Confirmed ???Type blood sugar diagnostic (Advanced #100 ea 12/12/22 03/20/24 Rx Glucose Meter Test Strips) blood-glucose meter (Advanced #1 ea 12/12/22 03/20/24 Rx Glucose Meter) lancets (Accu-Chek Softclix #100 ea 12/12/22 03/20/24 Rx Lancets) rizatriptan 10 mg disintegrating 10 mg PO PRN PRN MIGRAINES 12/17/22 03/20/24 History tablet (Maxalt-MECHANICAL MANAGER) atorvastatin 10 mg tablet (Lipitor) 10 mg PO QHS #30 tabs 12/30/23 03/20/24 Rx lisinopril 2.5 mg tablet 2.5 mg PO DAILY #30 tabs 12/30/23 03/20/24 Rx metformin 500 mg tablet 500 mg PO BID #60 tabs 12/30/23 03/20/24 Rx pantoprazole 40 mg tablet,delayed 40 mg PO DAILY #30 tabs 12/30/23 03/20/24 Rx release (Protonix) oxycodone 5 mg tablet 5 mg PO Q4H PRN pain 3 days #7 tabs 03/20/24 03/20/24 Rx PFSH Medical History Wears glasses Diabetes Blackout Migraine headache Dietary restriction Non-smoker GERD (gastroesophageal reflux disease) History of shingles Headache, migraine Surgical History No pertinent past surgical history Family History Mother Arthritis CVA (cerebral vascular accident) High cholesterol Ulcer Father Arthritis Cancer skin Diabetes High cholesterol Hypertension Melanoma Seizures Grandmother Arthritis Cancer cervical Grandfather Arthritis Sister Breast cancer Grandmother Alzheimer disease Ulcer Grandfather Heart failure Myocardial infarction Other Mental disorder Social History household members: spouse current occupational status: employed current occupation: human resources manager manufacturing Smoking Status: Never smoker Electronic Cigarette Use: not used alcohol intake: never substance use type: does not use what type of physical activity do you participate in: none do you feel safe at home: Yes HPI HPI HPI: For vasectomy. This was discussed during his last visit. Office Procedures Procedure Time Out Time Out Informed consent given: Yes Consent signed: Yes Time out checklist: patient, procedure, site marked/identified, positioning of patient, supplies available, allergies confirmed and team agrees on procedure Time out staff in room: Yes Time out verified: Yes Time out date: 03/20/24 Time out time: 13:00 Vasectomy Provider Documentation Provider Documentation: Bilateral partial vasectomy Time out and informed consent was obtained. The patient was taken to the procedure room and placed supine on the table. Bilateral scrotal areas were clipper and Betadine prepped. 1% lidocaine mixed 50-50 with 0.5% Marcaine was utilized as a local anesthetic. Less than a total of 10 cc was utilized. Bilateral scrotal incisions were created. Sharp and blunt dissection was used to identify the vas deferens. A segment was cleared, the ends were crushed, and segments were excised. The ends were secured with 3-0 chromic inverted and resecured. The skin edges were approximated with simple sutures of 3-0 chromic. Topical antibiotic ointment and gauze applied. He was given activity and wound care instructions. The specimens are submitted in formalin for analysis. He is scheduled to return to my office in 1 week's time. He has been provided analgesics as prescribed. He is well aware that he has not yet cleared from utilizing other means of control. He is aware that 2 negative consecutive semen counts will be required prior to releasing him from utilizing other means of control. He is aware that this is his responsibility to complete. He has had an opportunity to ask and have questions answered. Blood loss minimal. Specimens segments of vas deferens. Complications none. Alert Course Instructor Alert Billing: Yes Vasectomy 35066 Vasectomy Assessment and Plan Assessment and Zechariah (more content not included)... Normal [facility] Surgery Visit Reporton 02-18 Surgery Visit Report [facility] [address] [place] [address] OFFICE VISIT Date of Service: 02/19/24 MR#: [id number] Acct: [id number] Name: MAYRA MCCALLUM Rep #: [id number] : 1980 Provider: Dr. Jt mckeon MD Age/Sex: 43/M Location: [facility] Status: Signed Intake Vital Signs 02/04/24 15:37 02/19/24 08:36 Height 6 ft 6 ft Weight: 229 lb 221 lb 6 oz BMI 31.0 30.0 BP 140/86 H 122/82 H Blood Pressure Location Lt brachial Rt brachial Position Sitting Sitting Respiration 16 18 Pulse 97 82 Pulse Source Monitor Monitor Temp 97.7 F L 97.2 F L Temp Source Temporal Temporal Pulse Oximetry (%) 97 96 Oxygen Delivery Method room air room air Intake Visit Reasons: Vasectomy Chief Complaint: vasectomy Is patient in pain?: No Allergies No Known Allergies Allergy (Unverified 02/19/24 08:37) Medications ???Medication ???Instructions ???Recorded ???Confirmed ???Type blood sugar diagnostic (Advanced #100 ea 12/12/22 02/19/24 Rx Glucose Meter Test Strips) blood-glucose meter (Advanced #1 ea 12/12/22 02/19/24 Rx Glucose Meter) lancets (Accu-Chek Softclix #100 ea 12/12/22 02/19/24 Rx Lancets) rizatriptan 10 mg disintegrating 10 mg PO PRN PRN MIGRAINES 12/17/22 02/19/24 History tablet (Maxalt-MECHANICAL MANAGER) atorvastatin 10 mg tablet (Lipitor) 10 mg PO QHS #30 tabs 12/30/23 02/19/24 Rx lisinopril 2.5 mg tablet 2.5 mg PO DAILY #30 tabs 12/30/23 02/19/24 Rx metformin 500 mg tablet 500 mg PO BID #60 tabs 12/30/23 02/19/24 Rx pantoprazole 40 mg tablet,delayed 40 mg PO DAILY #30 tabs 12/30/23 02/19/24 Rx release (Protonix) lorazepam 2 mg tablet (Ativan) 2 mg PO ONCE 1 day #1 TAB 02/19/24 02/19/24 Rx PFSH Medical History Wears glasses Diabetes Blackout Migraine headache Dietary restriction Non-smoker GERD (gastroesophageal reflux disease) History of shingles Headache, migraine Surgical History No pertinent past surgical history Family History Mother Arthritis CVA (cerebral vascular accident) High cholesterol Ulcer Father Arthritis Cancer skin Diabetes High cholesterol Hypertension Melanoma Seizures Grandmother Arthritis Cancer cervical Grandfather Arthritis Sister Breast cancer Grandmother Alzheimer disease Ulcer Grandfather Heart failure Myocardial infarction Other Mental disorder Social History household members: spouse current occupational status: employed current occupation: human resources manager manufacturing Smoking Status: Never smoker Electronic Cigarette Use: not used alcohol intake: never substance use type: does not use what type of physical activity do you participate in: none do you feel safe at home: Yes HPI HPI HPI: Patient is a 43-year-old male here for vasectomy. He is here to discuss sterilization. He reports that his is on board as well. ROS General General: No weight change, appetite, fatigue, colon cancer, breast cancer or weakness HEENT HEENT: No difficulty swallowing, eye injury, eye surgery, swollen glands or hoarseness Endo Endocrine: Yes diabetes mellitus; No thyroid disease, thyroid cancer, Hair loss, heat intolerance or cold intolerance Skin Skin: No rash or changing moles Musc Musculoskeletal: No back problems, arthritis, rheumatoid arthritis, gout or joint pain Cardio Cardiovascular: Yes high blood pressure; No murmur, pacemaker, heart disease, atrial fibrillation, heart attack, heart stent, palpitations, shortness of breat with exertion or chest pain Psych Psychiatric: No depression, anxiety or hearing voices Resp Respiratory: No shortness of breath, No sleep apnea, No cough, No COPD, No asthma, No emphysema and No wheezing Gastro Gastrointestinal: No abdominal pain, No nausea or vomiting, No diarrhea, No constipation, No blood in stool, Yes acid reflux, No hemorrhoids, Yes ulcers, No gallbladder problem and No black,tarry stools Jaxon Hematologic: No blood thinners, No blood disorders, No bleeding, No anemia and No blood clots Neuro Neurologic: No numbness, No tingling and No weakness Exam Const General: cooperative Orientation: alert and oriented x3 HENMT Head: normal to inspection Neck Neck: normal visual inspection and full ROM Chest Chest palpation inspection: normal inspection of the chest Resp Effort Inspection: normal respiratory effort Auscultation: clear to auscultation bilaterally Cardio Rate: regular rate Rhythm: regular rhythm GI Inspection: non-distended Palpation: soft and nontender Skin General: (more content not included)... Normal [facility] Internal Medicine Office Vis itoshai 02-03-2024 Internal Medicine Office Visit [facility] [address] [place] [address] [place] [address] OFFICE VISIT Date of Service: 02/04/24 MR#: [id number] Acct: [id number] Name: MAYRA MCCALLUM Rep #: [id number] : 1980 Provider: Dr. Aye ramirez MD Age/Sex: 43/M Location: [facility].SPECULATOR Status: Signed Intake Vital Signs 12/30/23 14:22 02/04/24 15:37 Height 6 ft 6 ft Weight: 229 lb BMI 31.0 BP 140/86 H Blood Pressure Location Lt brachial Position Sitting Respiration 16 Pulse 97 Pulse Source Monitor Temp 97.7 F L Temp Source Temporal Pulse Oximetry (%) 97 Oxygen Delivery Method room air Intake Visit Reasons: groin issue Chief Complaint: groin issues Mold Maker Required: No Accompanied by: Self Is patient in pain?: Yes Allergies No Known Allergies Allergy (Unverified 02/04/24 15:31) Medications ???Medication ???Instructions ???Recorded ???Confirmed ???Type blood sugar diagnostic (Advanced #100 ea 12/12/22 02/04/24 Rx Glucose Meter Test Strips) blood-glucose meter (Advanced #1 ea 12/12/22 02/04/24 Rx Glucose Meter) lancets (Accu-Chek Softclix #100 ea 12/12/22 02/04/24 Rx Lancets) rizatriptan 10 mg disintegrating 10 mg PO PRN PRN MIGRAINES 03/27/23 05/14/24 History tablet (Maxalt-MECHANICAL MANAGER) atorvastatin 10 mg tablet (Lipitor) 10 mg PO QHS #30 tabs 12/30/23 02/04/24 Rx lisinopril 2.5 mg tablet 2.5 mg PO DAILY #30 tabs 12/30/23 02/04/24 Rx metformin 500 mg tablet 500 mg PO BID #60 tabs 12/30/23 02/04/24 Rx pantoprazole 40 mg tablet,delayed 40 mg PO DAILY #30 tabs 12/30/23 02/04/24 Rx release (Protonix) ketoconazole 2 % topical gel 1 applic topical DAILY 14 days #45 02/04/24 02/04/24 Rx grams PFSH Medical History Wears glasses Diabetes Blackout Migraine headache Dietary restriction Non-smoker GERD (gastroesophageal reflux disease) History of shingles Headache, migraine Surgical History No pertinent past surgical history Family History Mother Arthritis CVA (cerebral vascular accident) High cholesterol Ulcer Father Arthritis Cancer skin Diabetes High cholesterol Hypertension Melanoma Seizures Grandmother Arthritis Cancer cervical Grandfather Arthritis Sister Breast cancer Grandmother Alzheimer disease Ulcer Grandfather Heart failure Myocardial infarction Other Mental disorder Social History household members: spouse current occupational status: employed current occupation: human resources manager manufacturing Smoking Status: Never smoker Electronic Cigarette Use: not used alcohol intake: never substance use type: does not use what type of physical activity do you participate in: none do you feel safe at home: Yes HPI HPI Chief Complaint: groin issues Details: MAYRA MCCALLUM, is a 43 M who presents to the office today for an acute visit. He has concerns about a groin problem. He reports that he has had this problems for about 25 years, but never saw anybody for it. He describes it as a patchy rash which changes from white/scaly to red/irritated to pink. It involves his bilateral inguinal regions and around his scrotum. He states the edges of the rash can be itchy and it can also cause a burning pain. He feels that his symptoms are worse in the spring and fall as well as with sweating. He has tried OTC lotion which helps a little. He also tried tea tree oil which didn't help at all. He reports he recently joined the gym with his and feels that it has gotten worse since then. The patient denies any testicular/scrotal pain or any urinary problems. He denies any fevers and reports his sugars have been well controlled recently. The patient also has concerns about possible warts on his penis. He reports that he cut the area while shaving and noticed these growths later on. They have been present for about 3 weeks. They haven't changed in any way. He feels that they are similar to warts he had on his hands in the past and isn't sure how to treat them. The patient reports that he would also like a referral for a vasectomy. He is with one partner, his , who had a tubal ligation about 10 years ago, but they are not interested in having further children, so he would like to look into a vasectomy to ensure no risks. ROS Const Constitutional: No body ache, chills, excessive sweating, fatigue, fever(s), frequent falls, headache(s), snoring, weakness or change in appetite Eyes Eyes: No blurry vision, change in vision, eye pain or Light sensitivity ENT ENT: No abnormal hearing, ear or mastoid pain, tinnitus, nasal congestion, headache(s), neck pain or sore throat Resp Respi (more content not included)... Normal [facility] Absolute lymphocyte countOrd ered By: Aye Christianson on 12-30-2023 Lymphocytes Auto (Unsp spec) [#/Vol] 3.90 10*3/uL 0.83-4.51 [facility] Automated lymphocyte count a s percentage of total leukocytesOrdered By: Aye Christianson on 12-30-2023 Lymphocytes/100 WBC Auto (Unsp spec) 42.8 % 19-41 [facility] Basophil percentageOrdered B y: Aye Christianson on 12-30-2023 Basophils/100 WBC (Bld) 0.3 % 0-1 [facility] Bilirubin [Mass/Vol] 0.90 mg/dL 0.20-1.00 [facility] Comment on above: For patients on eltr ombopag therapy, use of Dimension [place] TBIL is not recommended. Chloride [Moles/Vol] 104 mmol/L 98-107 [facility] Cholesterol [Mass/Vol] 158 mg/dL <200 [facility] Comment on above: <200 mg/dL Desirable 200-240 mg/dL Borderline >240 mg/dL High Risk Eosinophils/100 WBC (Bld) 1.4 % 0-5 [facility] Glucose [Mass/Vol] 93 mg/dL 74-106 [facility] Hemoglobin (Bld) [Mass/Vol] 14.8 g/dL 13.0-16.5 [facility] Monocytes/100 WBC (Bld) 8.0 % 0-10 [facility] Neutrophils (Bld) [#/Vol] 4.3 10*3/uL 2.0-7.7 [facility] Neutrophils/100 WBC (Bld) 47.2 % 47-70 [facility] Potassium [Moles/Vol] 3.8 mmol/L 3.5-5.1 [facility] Protein [Mass/Vol] 8.1 g/dL 6.4-8.2 [facility] Sodium [Moles/Vol] 138 mmol/L 136-145 [facility] Triglyceride [Mass/Vol] 188 mg/dL <199 [facility] Comment on above: The drugs N-Acetylcy steine and Metamizole may falsely depress this assay.Serum Triglycerides Reference Interval Normal <150 mg/dL Borderline high 150 - 199 mg/dL High 200 - 499 mg/dL Very High > or = 500 mg/dL WBC (Bld) [#/Vol] 9.1 10*3/uL 4.4-11.0 [facility] Determination of erythrocyte mean corpuscular volume (MCV)Ordered By: Aye Christianson on 12-30-2023 MCV (RBC) [Entitic vol] 88.6 fL 80-94 [facility] Erythrocyte distribution wid th ratioOrdered By: Aye hCristianson on 12-30-2023 Erythrocyte distribution width (RBC) [Ratio] 11.8 % 11.6-14.6 [facility] Erythrocyte distribution wid th standard deviationOrdered By: Aye Christianson on 12-30-2023 Erythrocyte distribution width (RBC) [Entitic vol] 37.8 fL 35.1-43.9 [facility] Hematocrit Auto (Bld) [Volum e fraction]Ordered By: Aye Christianson on 12-30-2023 Hematocrit (Bld) [Volume fraction] 43.5 % 40-54 [facility] Immature granulocytes/100 WB C Auto (Bld)Ordered By: Aye Christianson on 12-30-2023 Immature granulocytes/100 WBC (Bld) 0.300 % 0.0-0.9 [facility] Comment on above: IG% - Immature Granu locytes (promyelocytes, myelocytes and metamyelocytes) > 1% indicates that a LEFT SHIFT is Present. Laboratory - Chemistry and C hemistry - challengeOrdered By: Aye Christianson on 12-30-2023 Albumin/Globulin [Mass ratio] 1.0 {ratio} 0.9-2.4 [facility] ALP [Catalytic activity/Vol] 76 U/L 45-117 [facility] ALT [Catalytic activity/Vol] 90 U/L 16-61 [facility] Cholesterol in HDL [Mass/Vol] 32 mg/dL >40 [facility] Comment on above: The drugs N-Acetylcy steine and Metamizole may falsely depress this assay. Reference Range HDL <40 mg/dL Low HDL Cholesterol HDL >or= 60 mg/dL High HDL Cholesterol Cholesterol in LDL [Mass/Vol] 88 mg/dL 0-130 [facility] CO2 [Moles/Vol] 29.0 mmol/L 21.0-32.0 [facility] Globulin (S) [Mass/Vol] 4.0 g/dL 2.2-4.2 [facility] Urea nitrogen/Creatinine [Mass ratio] 8.3 mg/mg 10-20 [facility] Laboratory - Hematology and Cell countsOrdered By: Aye Christianson on 12-30-2023 MCH (RBC) [Entitic mass] 30.1 pg 27.0-32.0 [facility] MCHC (RBC) [Mass/Vol] 34.0 g/dL 32-[address] [address] Nucleated RBC/100 WBC (Bld) [Ratio] 0 % 0-5 [facility] Platelet mean volume (Bld) [Entitic vol] 10.1 fL 6.2-12.0 [facility] Platelets (Bld) [#/Vol] 257 10*3/uL 150-450 [facility] No Panel InformationOrdered By: Aye Christianson on 12-30-2023 Estimated GFR (MDRD) Amer 95 mL/min >60 [facility] Comment on above: GFR Calc Estimated GFR (MDRD) Non-Af Amer 78 mL/min >60 [facility] Comment on above: Non- GFR Calc VLDL Cholesterol 38 mg/dL 5-40 [facility] RBC Auto (Bld) [#/Vol]Ordere d By: Aye Christianson on 12-30-2023 RBC (Bld) [#/Vol] 4.91 10*6/uL 4.6-6.2 [facility] Serum or plasma calcium julio cesar urement (mass/volume)Ordered By: Aye Christianson on 12-30-2023 Calcium [Mass/Vol] 9.8 mg/dL 8.5-10.1 [facility] Serum or plasma creatinine m easurement (mass/volume)Ordered By: Aye Christianson on 12-30-2023 Creatinine [Mass/Vol] 1.08 mg/dL 0.70-1.30 [facility] Comment on above: The validity of the calculated GFR & GFRAA in patients over 70 years has not been determined. Clinical correlation is essential. Serum or plasma urea nitroge n measurement (mass/volume)Ordered By: Aye Christianson on 12-30-2023 Urea nitrogen [Mass/Vol] 9 mg/dL 7-18 [facility] Thin prep Papanicolaou smear with manual screeningOrdered By: Aye Christianson on 12-30-2023 Thin prep Papanicolaou smear with manual screening 4.1 g/dL 3.2-5.0 [facility] Thin prep Papanicolaou smear with manual screening 45 U/L 15-37 [facility] Thin prep Papanicolaou smear with manual screening 5 5-15 [facility] Whole blood hemoglobin A1c/t otal hemoglobin ratio (mass fraction)Ordered By: Aye Christianson on 12-30-2023 HbA1c (Bld) [Mass fraction] 7.0 % 3.8-5.6 [facility] Comment on above: Normal < 5.7 % Predi abetic 5.7 - 6.4 % Diabetic >or= 6.5 % Please note range changes. Basophil percentageOrdered B y: Aye Christianson on 04-19-2023 Bilirubin [Mass/Vol] 0.90 mg/dL 0.20-1.00 [facility] Comment on above: For patients on eltr ombopag therapy, use of Dimension [place] TBIL is not recommended. Chloride [Moles/Vol] 106 mmol/L 98-107 [facility] Cholesterol [Mass/Vol] 231 mg/dL <200 [facility] Comment on above: <200 mg/dL Desirable 200-240 mg/dL Borderline >240 mg/dL High Risk Glucose [Mass/Vol] 114 mg/dL 74-106 [facility] Comment on above: Fasting Glucose resu lt from 100 to 125 mg/dL suggests IMPAIRED HOMEOSTASIS per A.D.A. criteria. Potassium [Moles/Vol] 3.9 mmol/L 3.5-5.1 [facility] Protein [Mass/Vol] 8.5 g/dL 6.4-8.2 [facility] Sodium [Moles/Vol] 137 mmol/L 136-145 [facility] Triglyceride [Mass/Vol] 283 mg/dL <199 [facility] Comment on above: The drugs N-Acetylcy steine and Metamizole may falsely depress this assay.Serum Triglycerides Reference Interval Normal <150 mg/dL Borderline high 150 - 199 mg/dL High 200 - 499 mg/dL Very High > or = 500 mg/dL Laboratory - Chemistry and C hemistry - challengeOrdered By: Aye Christianson on 04-19-2023 ALP [Catalytic activity/Vol] 89 U/L 45-117 [facility] ALT [Catalytic activity/Vol] 109 U/L 16-61 [facility] CO2 [Moles/Vol] 25.0 mmol/L 21.0-32.0 [facility] Globulin (S) [Mass/Vol] 4.5 g/dL 2.2-4.2 [facility] Urea nitrogen/Creatinine [Mass ratio] 11.3 mg/mg 10-20 [facility] No Panel InformationOrdered By: Aye Christianson on 04-19-2023 Urine Microalbumin/Creatinine Ratio 55.6 mg/g CRE <30 [facility] Estimated GFR (MDRD) Amer 97 mL/min >60 [facility] Comment on above: GFR Calc Estimated GFR (MDRD) Non-Af Amer 80 mL/min >60 [facility] Comment on above: Non- GFR Calc Serum or plasma albumin julio cesar urement (mass/volume)Ordered By: Aye Christianson on 04-19-2023 Albumin [Mass/Vol] 4.0 g/dL 3.2-5.0 [facility] Serum or plasma albumin/glob ulin mass ratioOrdered By: Aye Christianson on 04-19-2023 Albumin/Globulin [Mass ratio] 0.9 {ratio} 0.9-2.4 [facility] Serum or plasma calcium julio cesar urement (mass/volume)Ordered By: Aye Christianson on 04-19-2023 Calcium [Mass/Vol] 9.4 mg/dL 8.5-10.1 [facility] Serum or plasma cholesterol in HDL measurement (mass/volume)Ordered By: Aye Christianson on 04-19-2023 Cholesterol in HDL [Mass/Vol] 32 mg/dL >40 [facility] Comment on above: The drugs N-Acetylcy steine and Metamizole may falsely depress this assay. Reference Range HDL <40 mg/dL Low HDL Cholesterol HDL >or= 60 mg/dL High HDL Cholesterol Serum or plasma cholesterol in VLDL measurement (mass/volume)Ordered By: Aye Christianson on 04-19-2023 Cholesterol in VLDL [Mass/Vol] 57 mg/dL 5-40 [facility] Serum or plasma creatinine m easurement (mass/volume)Ordered By: Aye Christianson on 04-19-2023 Creatinine [Mass/Vol] 1.06 mg/dL 0.70-1.30 [facility] Comment on above: The validity of the calculated GFR & GFRAA in patients over 70 years has not been determined. Clinical correlation is essential. Serum or plasma low density lipoprotein (LDL) cholesterol measurement (mass/volume)Ordered By: Aye Christianson on 04-19-2023 Cholesterol in LDL [Mass/Vol] 142 mg/dL 0-130 [facility] Serum or plasma urea nitroge n measurement (mass/volume)Ordered By: Aye Christianson on 04-19-2023 Urea nitrogen [Mass/Vol] 12 mg/dL 7-18 [facility] Thin prep Papanicolaou smear with manual screeningOrdered By: Aye Christianson on 04-19-2023 Thin prep Papanicolaou smear with manual screening 130.0 mg/L NO RANGE EST. [facility] Thin prep Papanicolaou smear with manual screening 62 U/L 15-37 [facility] Thin prep Papanicolaou smear with manual screening 6 5-15 [facility] Urine creatinine measurement (mass/volume)Ordered By: Aye Christianson on 04-19-2023 Creatinine (U) [Mass/Vol] 234.00 mg/dL NO RANGE EST. [facility] Glucose Glucometer (BldC) [M ass/Vol]Ordered By: Dr. Nielson on 12-18-2022 Glucose [Mass/Vol] 137 mg/dL 74-106 [facility] Comment on above: MANAGEMENT OF PATIEN T CARE PER NURSING PROTOCOL Absolute lymphocyte countOrd ered By: Dr. Christianson on 11-13-2022 Lymphocytes Auto (Unsp spec) [#/Vol] 3.70 10*3/uL 0.83-4.51 [facility] Basophil percentageOrdered B y: Dr. Christianson on 11-13-2022 Basophils/100 WBC (Bld) 0.3 % 0-1 [facility] Bilirubin [Mass/Vol] 1.20 mg/dL 0.20-1.00 [facility] Comment on above: For patients on eltr ombopag therapy, use of Dimension [place] TBIL is not recommended. Chloride [Moles/Vol] 100 mmol/L 98-107 [facility] Cholesterol [Mass/Vol] 229 mg/dL <200 [facility] Comment on above: <200 mg/dL Desirable 200-240 mg/dL Borderline >240 mg/dL High Risk Eosinophils/100 WBC (Bld) 0.5 % 0-5 [facility] Glucose [Mass/Vol] 146 mg/dL 74-106 [facility] Comment on above: Fasting Glucose resu lt greater than or equal to 126 mg/dL suggests DIABETES MELLITUS per A.D.A. criteria. Neutrophils (Bld) [#/Vol] 4.9 10*3/uL 2.0-7.7 [facility] Neutrophils/100 WBC (Bld) 53.0 % 47-70 [facility] Potassium [Moles/Vol] 3.6 mmol/L 3.5-5.1 [facility] Protein [Mass/Vol] 8.3 g/dL 6.4-8.2 [facility] Sodium [Moles/Vol] 135 mmol/L 136-145 [facility] Triglyceride [Mass/Vol] 193 mg/dL <199 [facility] Comment on above: The drugs N-Acetylcy steine and Metamizole may falsely depress this assay.Serum Triglycerides Reference Interval Normal <150 mg/dL Borderline high 150 - 199 mg/dL High 200 - 499 mg/dL Very High > or = 500 mg/dL WBC (Bld) [#/Vol] 9.3 10*3/uL 4.4-11.0 [facility] Blood erythrocytes count (nu mber/volume)Ordered By: Dr. Christianson on 11-13-2022 RBC (Bld) [#/Vol] 5.28 10*6/uL 4.6-6.2 [facility] Blood hemoglobin measurement (mass/volume)Ordered By: Dr. Christianson on 11-13-2022 Hemoglobin (Bld) [Mass/Vol] 15.7 g/dL 13.0-16.5 [facility] Blood lymphocytes/100 leukoc ytesOrdered By: Dr. Christianson on 11-13-2022 Lymphocytes/100 WBC (Bld) 39.6 % 19-41 [facility] Blood monocytes/100 leukocyt esOrdered By: Dr. Christianson on 11-13-2022 Monocytes/100 WBC (Bld) 6.4 % 0-10 [facility] Blood platelet mean volumeOr dered By: Dr. Christianson on 11-13-2022 Platelet mean volume (Bld) [Entitic vol] 10.4 fL 6.2-12.0 [facility] Determination of erythrocyte mean corpuscular volume (MCV)Ordered By: Dr. Christianson on 11-13-2022 MCV (RBC) [Entitic vol] 89.0 fL 80-94 [facility] Hematocrit Auto (Bld) [Volum e fraction]Ordered By: Dr. Christianson on 11-13-2022 Hematocrit (Bld) [Volume fraction] 47.0 % 40-54 [facility] Laboratory - Chemistry and C hemistry - challengeOrdered By: Dr. Christianson on 11-13-2022 ALP [Catalytic activity/Vol] 96 U/L 45-117 [facility] ALT [Catalytic activity/Vol] 107 U/L 16-61 [facility] CO2 [Moles/Vol] 27.0 mmol/L 21.0-32.0 [facility] Globulin (S) [Mass/Vol] 4.3 g/dL 2.2-4.2 [facility] Urea nitrogen/Creatinine [Mass ratio] 14.7 mg/mg 10-20 [facility] Laboratory - Hematology and Cell countsOrdered By: Dr. Christianson on 11-13-2022 Erythrocyte distribution width (RBC) [Entitic vol] 38.3 fL 35.1-43.9 [facility] Erythrocyte distribution width (RBC) [Ratio] 11.8 % 11.6-14.6 [facility] Immature granulocytes/100 WBC (Bld) 0.200 % 0.0-0.9 [facility] Comment on above: IG% - Immature Granu locytes (promyelocytes, myelocytes and metamyelocytes) > 1% indicates that a LEFT SHIFT is Present. MCH (RBC) [Entitic mass] 29.7 pg 27.0-32.0 [facility] Nucleated RBC/100 WBC (Bld) [Ratio] 0 % 0-5 [facility] MCHC Auto (RBC) [Mass/Vol]Or dered By: Dr. Christianson on 11-13-2022 MCHC (RBC) [Mass/Vol] 33.4 g/dL 32-36 [facility] No Panel InformationOrdered By: Dr. Christianson on 11-13-2022 Estimated GFR (MDRD) Amer 102 mL/min >60 [facility] Comment on above: GFR Calc Estimated GFR (MDRD) Non-Af Amer 84 mL/min >60 [facility] Comment on above: Non- GFR Calc Thyroid Stimulating Hormone (TSH) 1.28 uIU/mL 0.358-3.74 [facility] Platelets bldOrdered By: Dr. Christianson on 11-13-2022 Platelets (Bld) [#/Vol] 279 10*3/uL 150-450 [facility] Serum or plasma albumin julio cesar urement (mass/volume)Ordered By: Dr. Christianson on 11-13-2022 Albumin [Mass/Vol] 4.0 g/dL 3.2-5.0 [facility] Serum or plasma albumin/glob ulin mass ratioOrdered By: Dr. Christianson on 11-13-2022 Albumin/Globulin [Mass ratio] 0.9 {ratio} 0.9-2.4 [facility] Serum or plasma calcium julio cesar urement (mass/volume)Ordered By: Dr. Christianson on 11-13-2022 Calcium [Mass/Vol] 9.7 mg/dL 8.5-10.1 [facility] Serum or plasma cholesterol in HDL measurement (mass/volume)Ordered By: Dr. Christianson on 11-13-2022 Cholesterol in HDL [Mass/Vol] 33 mg/dL >40 [facility] Comment on above: The drugs N-Acetylcy steine and Metamizole may falsely depress this assay. Reference Range HDL <40 mg/dL Low HDL Cholesterol HDL >or= 60 mg/dL High HDL Cholesterol Serum or plasma cholesterol in VLDL measurement (mass/volume)Ordered By: Dr. Christianson on 11-13-2022 Cholesterol in VLDL [Mass/Vol] 39 mg/dL 5-40 [facility] Serum or plasma creatinine m easurement (mass/volume)Ordered By: Dr. Christianson on 11-13-2022 Creatinine [Mass/Vol] 1.02 mg/dL 0.70-1.30 [facility] Comment on above: The validity of the calculated GFR & GFRAA in patients over 70 years has not been determined. Clinical correlation is essential. Serum or plasma low density lipoprotein (LDL) cholesterol measurement (mass/volume)Ordered By: Dr. Christianson on 11-13-2022 Cholesterol in LDL [Mass/Vol] 157 mg/dL 0-130 [facility] Serum or plasma urea nitroge n measurement (mass/volume)Ordered By: Dr. Christianson on 11-13-2022 Urea nitrogen [Mass/Vol] 15 mg/dL 7-18 [facility] Thin prep Papanicolaou smear with manual screeningOrdered By: Dr. Christianson on 11-13-2022 Thin prep Papanicolaou smear with manual screening 57 U/L 15-37 [facility] Thin prep Papanicolaou smear with manual screening 8 5-15 [facility] Whole blood hemoglobin A1c/t otal hemoglobin ratio (mass fraction)Ordered By: Dr. Christianson on 11-13-2022 HbA1c (Bld) [Mass fraction] 10.1 % 3.8-5.6 [facility] Comment on above: Normal < 5.7 % Predi abetic 5.7 - 6.4 % Diabetic >or= 6.5 % Please note range changes. Vital Signs Date Time Vital Sign Value Performing Clinician Faci lity 12-31-2024 07:37-0400 Body height 182.[address] Aye Christianson MD Work Phone: [facility] 12-31-2024 07:37-0400 Body mass index (BMI) [Ratio] 30.2 kg/m2 Dr. Aey Christianson MD Work Phone: [facility] 12-31-2024 07:37-0400 Body temperature 97.3 [degF] Dr. Aye Christianson MD Work Phone: [facility] 12-31-2024 07:37-0400 Body weight 101.[address] Aye Christianson MD Work Phone: [facility] 12-31-2024 07:37-0400 Diastolic blood pressure 82 mm[Hg] Dr. Aye Christianson MD Work Phone: [facility] 12-31-2024 07:37-0400 Heart rate 76 /min Dr. Aye Christianson MD Work Phone: [facility] 12-31-2024 07:37-0400 Respiratory rate 16 /min Dr. Aye Christianson MD Work Phone: [facility] 12-31-2024 07:37-0400 SaO2% (BldA) [Mass fraction] 98 % Dr. Aye Christianson MD Work Phone: [facility] 12-31-2024 07:37-0400 Systolic blood pressure 122 mm[Hg] Dr. Aye Christianson MD Work Phone: [facility] 12-30-2023 14:22-0400 Body height 182.[address] Aye Christianson Work Phone: [facility] 12-30-2023 14:22-0400 Body mass index (BMI) [Ratio] 30.4 kg/m2 Dr. Aye Christianson Work Phone: [facility] 12-30-2023 14:22-0400 Body temperature 98.4 [degF] Dr. Aye Christianson Work Phone: [facility] 12-30-2023 14:22-0400 Body weight 101.[address] Aye Christianson Work Phone: [facility] 12-30-2023 14:22-0400 Diastolic blood pressure 74 mm[Hg] Dr. Aye Christianson Work Phone: [facility] 12-30-2023 14:22-0400 Heart rate 84 /min Dr. Aye Christianson Work Phone: [facility] 12-30-2023 14:22-0400 Respiratory rate 16 /min Dr. Aye Christianson Work Phone: [facility] 12-30-2023 14:22-0400 SaO2% (BldA) [Mass fraction] 97 % Dr. Aye Christianson Work Phone: [facility] 12-30-2023 14:22-0400 Systolic blood pressure 110 mm[Hg] Dr. Aye Christianson Work Phone: [facility] 2023 10:35-0400 Body height 182.[address] Aye Christianson Work Phone: [facility] 02-05-2023 14:00-0400 Body mass index (BMI) [Ratio] 29.7 kg/m2 Dr. Aye Christianson Work Phone: [facility] 02-05-2023 14:00-0400 Body temperature 97.2 [degF] Dr. Aye Christianson Work Phone: [facility] 02-05-2023 14:00-0400 Body weight 99.[address] Aye Christianson Work Phone: [facility] 02-05-2023 14:00-0400 Diastolic blood pressure 72 mm[Hg] Dr. Aye Christianson Work Phone: [facility] 02-05-2023 14:00-0400 Heart rate 90 /min Dr. Aye Christianson Work Phone: [facility] 02-05-2023 14:00-0400 Respiratory rate 14 /min Dr. Aye Christianson Work Phone: [facility] 02-05-2023 14:00-0400 SaO2% (BldA) [Mass fraction] 95 % Dr. Aye Christianson Work Phone: [facility] 02-05-2023 14:00-0400 Systolic blood pressure 120 mm[Hg] Dr. Aye Christianson Work Phone: [facility] 01-07-2023 16:41-0400 Body mass index (BMI) [Ratio] 30.5 kg/m2 Dr. Aye Christianson Work Phone: [facility] 01-07-2023 16:41-0400 Body temperature 97.5 [degF] Dr. Aye Christianson Work Phone: [facility] 01-07-2023 16:41-0400 Body weight 102.[address] Aye Christianson Work Phone: [facility] 01-07-2023 16:41-0400 Diastolic blood pressure 84 mm[Hg] Dr. Aye Christianson Work Phone: [facility] 01-07-2023 16:41-0400 Heart rate 75 /min Dr. Aye Christianson Work Phone: [facility] 01-07-2023 16:41-0400 Respiratory rate 14 /min Dr. Aye Christianson Work Phone: [facility] 01-07-2023 16:41-0400 SaO2% (BldA) [Mass fraction] 96 % Dr. Aye Christianson Work Phone: [facility] 01-07-2023 16:41-0400 Systolic blood pressure 128 mm[Hg] Dr. Aye Christianson Work Phone: [facility] 12-18-2022 08:08-0400 Body temperature 97.3 [degF] Dr. Aye Christianson Work Phone: [facility] 12-18-2022 08:08-0400 Diastolic blood pressure 84 mm[Hg] Dr. Aye Christianson Work Phone: [facility] 12-18-2022 08:08-0400 Heart rate 62 /min Dr. Aye Christianson Work Phone: [facility] 12-18-2022 08:08-0400 Respiratory rate 14 /min Dr. Aye Crhistianson Work Phone: [facility] 12-18-2022 08:08-0400 SaO2% (BldA) [Mass fraction] 97 % Dr. Aye Christianson Work Phone: [facility] 12-18-2022 08:08-0400 Systolic blood pressure 112 mm[Hg] Dr. Aye Christianson Work Phone: [facility] 12-18-2022 06:55-0400 Body height 182.[address] Aye Christianson Work Phone: [facility] 12-18-2022 06:55-0400 Body mass index (BMI) [Ratio] 30.2 kg/m2 Dr. Aye Christianson Work Phone: [facility] 12-18-2022 06:55-0400 Body weight 100.[address] Aye Christianson Work Phone: [facility] 11-13-2022 14:15-0500 Body height 182.[address] Aye Christianson Work Phone: [facility] 11-13-2022 14:15-0500 Body mass index (BMI) [Ratio] 30.2 kg/m2 Dr. Aye Christianson Work Phone: [facility] 11-13-2022 14:15-0500 Body temperature 97.3 [degF] Dr. Aye Christianson Work Phone: [facility] 11-13-2022 14:15-0500 Body weight 101.[address] Aye Christianson Work Phone: [facility] 11-13-2022 14:15-0500 Diastolic blood pressure 89 mm[Hg] Dr. Aye Christianson Work Phone: [facility] 11-13-2022 14:15-0500 Heart rate 91 /min Dr. Aye Christianson Work Phone: [facility] 11-13-2022 14:15-0500 Respiratory rate 16 /min Dr. Aye Christianson Work Phone: [facility] 11-13-2022 14:15-0500 SaO2% (BldA) [Mass fraction] 97 % Dr. Aye Christianson Work Phone: [facility] 11-13-2022 14:15-0500 Systolic blood pressure 146 mm[Hg] Dr. Aye Christianson Work Phone: [facility] 10-31-2022 14:59-0500 Body mass index (BMI) [Ratio] 31.6 kg/m2 Dr. Aye Christianson Work Phone: [facility] 10-31-2022 14:59-0500 Body temperature 97.2 [degF] Dr. Aye Christianson Work Phone: [facility] 10-31-2022 14:59-0500 Body weight 102.[address] Aye Christianson Work Phone: [facility] 10-31-2022 14:59-0500 Diastolic blood pressure 84 mm[Hg] Dr. Aye Christianson Work Phone: [facility] 10-31-2022 14:59-0500 Heart rate 72 /min Dr. Aye Christianson Work Phone: [facility] 10-31-2022 14:59-0500 Respiratory rate 14 /min Dr. Aye Christianson Work Phone: [facility] 10-31-2022 14:59-0500 SaO2% (BldA) [Mass fraction] 98 % Dr. Aye Christianson Work Phone: [facility] 10-31-2022 14:59-0500 Systolic blood pressure 134 mm[Hg] Dr. Aye Christianson Work Phone: [facility] Encounters Encounter Date Encounter Type Care Provider Facility Start: 12-31-2024 End: 12-31-[address] Aye Christianson MD -[facility] Work Phone: Start: 12-31-2024 End: 12-31-[address] Aye Christianson MD Work Phone: [facility] Work Phone: Start: 12-31-2024 End: 12-31-2024 ambulatory Aye Christianson Facility:[facility] Start: 07-01-2024 End: 07-01-2024 ambulatory Vasiliy LEE Facility:[facility] Start: 07-01-2024 End: 07-01-2024 ambulatory Vasiliy LEE Facility:[facility] Start: 03-27-2024 End: 03-27-2024 ambulatory Aye Christianson Facility:[facility] Start: 03-20-2024 End: 03-20-2024 ambulatory Aye Christianson Facility:[facility] Start: 03-20-2024 End: 03-20-2024 ambulatory Jtletty Nielson Facility:[facility] Start: 02-19-2024 End: 02-19-2024 ambulatory Jt Nielson Facility:[facility] Start: 02-04-2024 End: 02-04-2024 ambulatory Aye Christianson Facility:[facility] Start: 12-30-2023 End: 12-30-[address] Aye Christianson Work Phone: [facility] Work Phone: Start: 12-30-2023 End: 12-30-[address] Aye Christianson Work Phone: [facility] Work Phone: Start: 04-19-2023 End: 04-19-[address] Aye Christianson Work Phone: [facility] Work Phone: Start: 04-19-2023 End: 04-19-[address] Aye Christianson Work Phone: [facility], SPECULATOR Start: 2023 End: [address] Aye Christianson Work Phone: [facility] Start: 02-05-2023 End: 02-05-[address] Aye Christianson Work Phone: [facility] Work Phone: Start: 01-07-2023 End: 01-07-[address] Aye Christianson Work Phone: [facility] Work Phone: Start: 12-18-2022 Non-patient / Non-visit Dr. Aye Chritsianson Work Phone: [facility] Start: 12-18-2022 End: 12-18-2022 Admission to same day surgery center Dr. Aye Christianson Work Phone: [facility] Start: 12-18-2022 End: 12-18-[address] Aye Christianson Work Phone: [facility] Work Phone: Start: 11-13-2022 End: 11-13-[address] Aye Christianson Work Phone: [facility] Work Phone: Start: 11-13-2022 End: 11-13-[address] Aye Christianson Work Phone: [facility] Start: 10-31-2022 End: 10-31-[address] Aye Christianson Work Phone: [facility] Procedures Date Procedure Procedure Detail Performing Clinician Start: 2023 Plain chest X-ray Dr. Karina Christianson Work Phone: Start: 12-18-[address] Aye Christianson Work Phone: Plan of Treatment Date Care Activity Detail Author Start: 12-31-2024 Patient referral [facility] Work Phone: Start: 12-30-2023 Patient referral [facility] Work Phone: Start: 01-07-2023 Patient referral [facility] Work Phone: Start: 12-18-2022 Patient discharge [facility] Start: 10-31-2022 Patient referral [facility] Work Phone: Colonoscopy [facility] Patient referral [facility] Work Phone: Urine microalbumin/c reatinine ratio measurement General acute hospital Immunizations Immunization Date Immunization Notes Care Provider Fa [facility] 12-31-2024 pneumococcal polysaccharide vaccine, [address] Aye Christianson MD Work Phone: [facility] 06-23-2021 Covid (Pfizer) Dr. Aye sherwood Work Phone: [facility] 06-02-2021 Covid (Pfizer) Dr. Aye sherwood Work Phone: [facility] Payers Date Payer Category Payer Self-pay 2023 Private Health Insurance [id number] Private Health Insurance [id number] Unknown [id number] 2.16.8 [id number] Unknown [id number] 2.16.8 [id number] Unknown [id number] 2.16.8 [id number] Unknown [id number] 2.16.8 [id number] Unknown [id number] 2.16.8 [id number] Unknown [id number] 2.16.8 [id number] Unknown [id number] 2.16.8 [id number] Unknown [id number] 2.16.8 [id number] Unknown [id number] 2.16.8 [id number] Social History Date Type Detail Facility Start: 11-13-2022 End: 12-26-2023 Tobacco smoking status NHIS Unknown if ever smoked [facility] Start: 1980 Sex Assigned At Male [facility] Start: 12-31-2024 Tobacco smoking stat us MAIS Never smoked tobacco (finding) [facility] Start: 01-06-2025 Sex Male (finding) [facility] Gender Identity Identifies as ma le gender (finding) [facility] Sexual Orientation Heterosexual (finding) [facility] Medical Equipment Procedure Code Equipment Code Equipment Origin al Text Equipment Identifier Dates Blood Sugar Diagnostic (Advanced Gluc Meter Test Strip) strip Start: 12-12-2022 Lancets (Accu-Ch ek Softclix Lancets) [facility] Start: 12-12-2022 Blood Sugar Diagnostic (Advanced Gluc Meter Test Strip) strip Start: 12-12-2022 Lancets (Accu-Ch ek Softclix Lancets) misc Start: 12-12-2022 Blood Sugar Diagnostic (Advanced Gluc Meter Test Strip) strip Start: 12-12-2022 Lancets (Accu-Ch ek Softclix Lancets) misc Start: 12-12-2022 Blood Sugar Diagnostic (Advanced Gluc Meter Test Strip) strip Start: 12-12-2022 Lancets (Accu-Ch ek Softclix Lancets) [facility] Start: 12-12-2022 Goals Date Patient Goal Desired Activity /State Mental Status Date Assessment Result Facility 12-18-2022 Cognitive function Level Of Consciousness Sedated [facility] Work Phone: 12-18-2022 Cognitive function Voice/Name [facility] Work Phone: Evaluation note 12-31-2024 Note Date & Type Note Facility 12-31-2024 Evaluation note Diagnosis Onset Date Resolution GERD (gastroesophageal reflux disease) acute December 31, 2024 7:25am Headache, migraine acute December 31, 2024 7:25am Immunization due noneactive December 312024 7:25am Moderate anxiety noneactive December 312024 7:25am Controlled type 2 diabetes mellitus noneactive December 31 7:25am Mild depression noneactive December 7:25am [facility] Work Phone: Procedure note 12-18-2022 Note Date & Type Note Facility 12-18-2022 Procedure note [facility] Procedure note 12-18-2022 Note Date & Type Note Facility 12-18-2022 Procedure note [facility] Procedure note 12-18-2022 Note Date & Type Note Facility 12-18-2022 Procedure note [facility] Procedure note 12-18-2022 Note Date & Type Note Facility 12-18-2022 Procedure note [facility] Evaluation note Note Date & Type Note Facility Evaluation note Diagnosis Onset Date GERD (gastroesophageal reflux disease) acute Headache, migraine acute Screening for colon cancer n oneactive Screening for cardiovascular condition noneactive Establishing care with eileen florian, encounter for noneactive Increased thirst noneactive Dark stools noneactive Weight loss noneactive Xanthelasma of eyelid noneac tive Black stools acute GERD (gastroesophageal reflux disease) acute [facility] Work Phone: Evaluation note Note Date & Type Note Facility Evaluation note Diagnosis Onset Date GERD (gastroesophageal reflux disease) acute Headache, migraine acute Uncontrolled type 2 diabetes mellitus acute Dark stools noneactive Uncontrolled type 2 diabetes mellitus acute URI, acute noneactive [facility] Work Phone: Evaluation note Note Date & Type Note Facility Evaluation note Diagnosis Onset Date GERD (gastroesophageal reflux disease) acute Headache, migraine acute Controlled type 2 diabetes mellitus noneactive Cough in adult noneactive [facility] Work Phone: History and physical note Note Date & Type Note Facility History and physical note Note Date/Time December 18, 2022 7:50am [facility] Medical Records Department [address] [place] [address] History & Physical Exam 12/18/22 0750 MR#: [id number] Acct: [id number] Name: MAYRA MCCALLUM Rep #:[id number] : 1980 42 From: Jt cerda MD PCP: Dr. Aye Christianson MD Status:[facility] Location: [place] [address] History and Physical Date of Admission: 12/18/22 Intake Vital Signs ? 11/13/2313:15 Height 6 ft Weight: 223 lb BMI 30.2 BP 146/89 H Blood Pressure LocationB Rt brachial Position Sitting Respiration 16 Pulse 91 Pulse Source Monitor Temp 97.3 F L Temp Source Temporal Pulse Oximetry (%) 97 Oxygen Delivery Method room air Intake Visit Reasons:?Upper/Lower Scope Chief Complaint: Upper/Lower Scope Mold Maker Required: No Is patient in pain?: No Allergies No Known Allergies Allergy (Unverified 11/13/22 14:16) Medications rizatriptan 10 mg disintegrating tablet (Maxalt-MECHANICAL MANAGER) See Rx Instructions PO .COMPLEX #10 tabs 10/31/22 [Rx Confirmed 11/13/22] omeprazole 40 mg capsule,delayed release 40 mg PO DAILY 11/13/22 [History Confirmed 11/13/22] PFSH Medical History? GERD (gastroesophageal reflux disease) Headache, migraine History of pneumonia History of shingles Surgical History? No pertinent past surgical history Family History? Mother Arthritis CVA (cerebral vascular accident) High cholesterol UlcerFather Arthritis Cancer ?? ? skin Diabetes High cholesterol Hypertension Melanoma SeizuresGrandmother Arthritis Cancer ?? ? cervicalGrandfather ArthritisSister Breast cancerGrandmother Alzheimer disease UlcerGrandfather Heart failure Myocardial infarctionOther Mental disorder Social History? household members:? spouse current occupational status:? 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 Never smoker Electronic Cigarette Use:? not used alcohol intake:? never substance use type:? does not use what type of physical activity do you participate in:? none do you feel safe at home:? Yes HPI HPI HPI: Patient is a 42-year-old male here with black stools.? He reports that in 2019 he had an episode where he was vomiting a lot of acidic material that was green and since then he has had episodic black stools.? He was started on a PPI about 2 weeks ago and has not had any black stools since then.? He denies abdominal pain or gross blood in the stool.? He has not had a colonoscopy. ROS General General: Yes weight change; No appetite, fatigue, colon cancer, breast cancer or weakness HEENT HEENT: No difficulty swallowing, eye injury, eye surgery, swollen glands or hoarseness Endo Endocrine: No thyroid disease, diabetes mellitus, thyroid cancer, Hair loss, heat intolerance or cold intolerance Skin Skin: No rash or changing moles Musc Musculoskeletal: No back problems, arthritis, rheumatoid arthritis, gout or joint pain Cardio Cardiovascular: No murmur, pacemaker, heart disease, atrial fibrillation, high blood pressure, heart attack, heart stent, palpitations, shortness of breat withexertion or chest pain Psych Psychiatric: No depression, anxiety or hearing voices Resp Respiratory: No shortness of breath, No sleep apnea, No cough, No COPD, No asthma, No emphysema and No wheezing Gastro Gastrointestinal: No abdominal pain, No nausea or vomiting, No diarrhea, No constipation, Yes blood in stool, Yes acid reflux, No hemorrhoids, No ulcers, Nogallbladder problem and Yes black,tarry stools Jaxon Hematologic: No blood thinners, No blood disorders, No bleeding, No anemia and No blood clots Neuro Neurologic: No system reviewed and no additional complaints, except as documented, No as per HPI, No abnormal gait, No abnormal hearing, No abnormal movements, No abnormal speech, No behavioral changes, No burning sensations, No confusion, No convulsions, No disequilibrium, No dizziness, No localized weakness, No frequent falls, No headache(s), No lack of coordination, No loss ofvision, No memory loss, No numbness, No other visual disturbances, No radicular pain, No restless legs, No sensory deficit, No syncope, No tingling, No tremor(s), No weakness and No other Exam Const General: cooperative Orientation: alert and oriented x3 HENVA Head: normal to inspection Neck Neck: normal visual inspection and full ROM Chest Chest palpation & inspection: normal inspection of the chest Resp Effort & Inspection: normal respiratory effort Auscultation: clear to auscultation bilaterally Cardio Rate: regular rate Rhythm: regular rhythm GI Inspection: non-distended Palpation: soft and nontender Skin General: no rashes or lesions noted Neuro General: patient alert and patient oriented x3 Extrem General: full ROM Psych Appearance: grossly normal Mental Status: mental status grossly normal Assessment and Plan Assessment and Plan (1) Black stools: ?Status:?Acute (2) GERD (gastroesophageal reflux disease): ?Status:?Acute ?Qualifiers: ?Esophagitis presence:?without esophagitis? Qualified Code(s):?K21.9 - Gastro-esophageal reflux disease without esophagitis ? ? ? Orders: Orders Colonoscopy Today K21.9 - Gastro-esophageal reflux disease without esophagitis, K92.1 - Melena Dr. Jt Nielson MD EGD Today K21.9 - Gastro-esophageal reflux disease without esophagitis, K92.1 - Melena Dr. Jt Nielson MD ? ? ? Medications: Changed From omeprazole 20 mg? PO DAILY ? ? To omeprazole 40 mg? PO DAILY ? Dr. Aye Christianson MD Plan Patient has been having black stools and is concerned for GI bleeding.? He was sent here for EGD and colonoscopy.? Patient has never had a colonoscopy before. I explained endoscopy in detail to the patient.? I explained the risks includingbut not limited to stroke or heart attack with anesthesia, perforation of the GItract, bleeding, infection.? I explained that any of these could necessitate further emergency surgery.? The patient understands and all questions were answered sufficiently.? The patient wishes to proceed with procedure. Jt Nielson MD Pager: [facility] [address] [place] [address], [address] [place] [address] Office: I have examined the patient and the H&P has been reviewed. There are no clinicalchanges since date of exam. 12/18/22 0750 <Electronically signed by Jt Nielson MD> Cosigner Signature (if applicable): CC: Dr. Aye Christianson MD; Dr. Jt Nielson MD~ Signed [facility] Work Phone: Chief Complaint and Reason for Visit Chief Complaint MERCHANDISING SPECIALIST, EST. CARE, PT ARMANDO S NPP Upper/Lower Scope Reason for Visit GERD (gastroesophage al reflux disease) Headache, migraine Screening for colon cancer Screening for cardiovascular condition Establishing care with new doctor, encounter for Increased thirst Dark stools Weight loss Xanthelasma of eyelid Black stools GERD (gastroesophageal reflux disease) Chief Complaint 2 M FU upper resp issues XRAY Reason for Visit GERD (gastroesophage al reflux disease) Headache, migraine Uncontrolled type 2 diabetes mellitus Dark stools Uncontrolled type 2 diabetes mellitus URI, acute Chief Complaint FOLLOW UP Reason for Visit GERD (gastroesophage al reflux disease) Headache, migraine Controlled type 2 diabetes mellitus Cough in adult Chief Complaint Admit Date YEARLY December 31, 2024 7:2 5am Reason for Visit Admit Date GERD (gastroesophageal reflux disease) A pril 2024 7:25am Headache, migraine December 31, 2024 7:2 5am Immunization due December 31, 2024 7:2 5am Moderate anxiety December 31, 2024 7:2 5am Controlled type 2 diabetes mellitus Apri l 2024 7:25am Mild depression December 31, 2024 7:2 5am Family History No Family History Records Found Relationship Condition Age at Onset Recorded Date/T wolf Not Specified Mental disorder Unknown mother Arthritis Unknown Cerebrovascular accident (CVA) Unknown High blood cholesterol Unknown Ulcerative lesion Unknown father Arthritis Unknown Malignant neoplasm Unknown Diabetes mellitus Unknown Hypertension Unknown Malignant melanoma Unknown Seizures Unknown grandmother Arthritis Unknown grandfather Arthritis Unknown sister Malignant neoplasm of breast Unknown grandmother Alzheimer's disease Unknown grandfather Heart failure Unknown Myocardial infarction Unknown Advance Directives No Advanced Directives Records Found Advance Directive Response Recorded Date/ Time Living Will No December 17, 2022 9:32am Power of Clay Grinder No December 17 9:32am Advance Directive Response Recorded Date/ Time Living Will No 2023 1 0:35am Power of Clay Grinder No 2023 10:35am Advance Directive Response Recorded Date/ Time Living Will No 2023 1 0:35am Do you have a Healthcare Power of Clay Grinder? No 2023 10:35am Summary Purpose Additional Source Comments Care Teams (unrecognized sec tion and content) Team Status: Active Member Role Status Dates Dr. Aye Christianson MD Primary Care Provider Active Team Status: Inactive Member Role Status Dates Dr. Aye Christianson MD Attending Provider Active Team Status: Inactive Member Role Status Dates Dr. Jt Nielson MD Attending Provider Active Dr. Aye Christianson MD Primary Care Provider, Referri ng Provider Active Team Status: Inactive Member Role Status Dates Dr. Aye Christianson MD Primary Care Pro vider, Attending Provider, Referring Provider Active Team Status: Active Member Role Status Dates Dr. Aye Christianson MD Primary Care Provider, Referri ng Provider Active Dr. Jt Nielson MD Attending Provider, Other Provider Active Team Status: Inactive Member Role Status Dates Dr. Aye Christianson MD Primary Care Provider, Referri ng Provider Active Dr. Jt Nielson MD Attending Provider Active Team Status: Inactive Member Role Status Dates Dr. Aye Christianson MD Primary Care Provider, Attendi ng Provider Active Team Status: Inactive Member Role Status Dates Dr. Aye Christianson MD Primary Care Provider Active Dr. Chase Bae MD Attending Provider Active Team Status: Inactive Member Role Status Dates Dr. Aye Christianson MD Primary Care Provider Active Start: December 31, 2024 End: December 31, 2024 Dr. Aye Christianson MD Attending Provider Active Start: December 31, 2024 End: December 31, 2024 Dr. Aye Christianson MD Referring Provider Active Start: December 31, 2024 End: December 31, 2024 Goals (unrecognized section and content) Goals may be documented in a n alternate sectionGoals may be documented in an alternate sectionGoals may be documented in an alternate sectionGoals may be documented in an alternate section (unrecognized sect ion and content) No Status Records Found INFORMATION SOURCE (unrecogn ized section and content) DATE CREATED AUTHOR 01/08/2025 [facility] FOR RECORDS PERTAINING TO PATIENTS WHO ARE OR HAVE BEEN ENROLLED IN A CHEMICAL DEPENDENCY/SUBSTANCEABUSE PROGRAM, SOME INFORMATION MAY BE OMITTED. This clinical summary was aggregated from multiple sources. Caution should be exercised in using it in the provision of clinical care. This summary normalizes information from multiple sources, and as a consequence, information in this document may materially change the coding, format and clinical context of patient data. In addition, data may be omitted in some cases. CLINICAL DECISIONS SHOULD BE BASED ON THE PRIMARY CLINICAL RECORDS. [email or web address] [facility]. provides no warranty or guarantee of the accuracy or completeness of information in this document.
[2025-05-19 05:50] VITALS: BP 125/89; PULSE 72; RESP 18; TEMP 36.6; O2SAT 100
== END 2025-05-19 05:51 | disposition home or self-care (01) ==
PROVIDERS: Emergency Provider Emergency Medicine; PCP Internal Medicine; Visit Provider Emergency Medicine
DX: G43.909 Migraine, unspecified, not intractable, without status migrainosus (principal); E11.9 Type 2 diabetes mellitus without complications; H66.91 Otitis media, unspecified, right ear; Z79.899 Other long term (current) drug therapy; Z79.84 Long term (current) use of oral hypoglycemic drugs
CPT/HCPCS: 96374; 96375; 99283; A4216